=== PATIENT | male | born 1940 | race Caucasian/White ===

== ENCOUNTER 2020-04-22 11:41 | Emergency (ER) | payer BC, OTHER ==
--- OUTSIDE RECORDS SUMMARY | 2020-04-22 11:43 | XMS REPORT | Clinical Summary ---
:1940 Author Organization [facility] Address [address] [place] [id number] Care Team Providers Name Role Phone Unavailable Primary Care Provider Unavailable Allergies Not on File Medications Not on file Active Problems Not on file Social History Tobacco Use Types Packs/Day Years Used Date Never Assessed Sex Assigned at Date Recorded Not on file Job Start Date Occupation Industry Not on file Not on file Not on file Travel History Travel Start Travel End No recent travel history available. 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
--- OUTSIDE RECORDS SUMMARY | 2020-04-22 11:44 | XMS REPORT | Clinical Summary ---
:[address] [facility] Address [address] [place] [address] Care Team Providers Name Role Phone Nelda Feliz Primary Care Provider Allergies Active Allergy Reactions Severity Noted Date Comments Butorphanol Tartrate Nausea And Vomiting 03/18/2017 syncope Medications Medication Sig Dispensed Refills Start Date End Date Status metoprolol (TOPROL-XL) Take 100 mg by 0 Active 100 MG 24 hr tablet mouth daily. losartan-hydrochlorothi Take 1 tablet by 0 Active azide (HYZAAR) 100-12.5 mouth daily. mg per tablet amLODIPine (NORVASC) 10 Take 10 mg by 0 Active MG tablet mouth daily. simvastatin (ZOCOR) 20 Take 20 mg by 0 Active MG tablet mouth nightly. escitalopram oxalate Take 10 mg by 0 Active (LEXAPRO) 10 MG tablet mouth daily. aspirin 325 MG EC Take 325 mg by 0 Active tablet mouth daily. brinzolamide-brimonidin Apply to eye(s). 0 Active e (SIMBRINZA) 1-0.2 % DrpS travoprost (TRAVATAN Z) Place 1 drop into 0 Active 0.004 % Drop ophthalmic both eyes drops nightly. timolol (BETIMOL) 0.5 % 1 drop 2 (two) 0 Active ophthalmic solution times daily. loteprednol (LOTEMAX) 1 drop 4 (four) 0 Active 0.5 % ophthalmic times daily. suspension Active Problems Not on file Social History Tobacco Use Types Packs/Day Years Used Date Never Smoker Smokeless Tobacco: Never Used Alcohol Use Drinks/Week oz/Week Comments Yes 5 Glasses of wine 5.4 2 Cans of beer 2 Shots of liquor Sex Assigned at Date Recorded Not on file Job Start Date Occupation Industry Not on file Not on file Not on file Travel History Travel Start Travel End No recent travel history available. Last Filed Vital Signs Not on file Plan of Treatment Not on file Implants Implanted Type [facility] Licensed Practical Nurse Device Shelf Model / Identifier Expiration Serial / Lot Date Cornea, Whole, Pre-Cut For Ek Ophthalmology Left: Unknown 08/29/2018 [id number] / Implanted: Qty: 1 on 08/19/2018 by Beth Duong MD Eye [id number] / Iol Acrysof Candice 6.0 13 17d [id number] - [id number] Ophthalmolo gy Left: [facility] 06/03/2023 [id number] / Implanted: Qty: 1 on 01/20/2019 by Beth Duong MD Eye [id number] / Cornea Whole Cornea - [id number] Tissue Right: [facility] 03/28/2017 CORNEA / Implanted: Qty: 1 on 03/19/2017 by Beth Duong MD Graft/Yusuf bstitute Eye [facility] 17-2000 200 / Results Not on fileafter 04/22/2019 Insurance Payer Benefit Plan / Subscriber ID Type Phone Address Group AETNA - MEDICARE AETNA MEDICARE HMO xxxxxxxx [address] [place] [address]
[2020-04-22 13:20] LABS: Absolute Lymphocytes (CBC) 1.9 K/uL (0.7-4.9); Basophils % 0.6 % (0-1.3); Hematocrit 22.4 % (39.6-49.0); Lymphocytes % 14.7 % (15.3-44.8); MPV 9.1 fL (7.6-11.3); RBC Red Blood Cell Count 2.31 M/uL (4.33-5.43)
[2020-04-22 13:37] LABS: Bilirubin Direct 0.3 mg/dL (0-0.2); Bilirubin Total 0.7 mg/dL (0.2-1.0); Potassium 3.8 mmol/L (3.5-5.1); Protein, Total 6.1 g/dL (6.4-8.2)
--- NOTE | 2020-04-22 13:59 | RAD REPORT ---
EXAM DESCRIPTION: CTAbdomen Pelvis W Contrast - 04/22/2020 1:38 pm CLINICAL HISTORY: Abdominal pain. Abd pain;GI bleed COMPARISON: No comparisons TECHNIQUE: Biphasic CT imaging of the abdomen and pelvis was performed with 100 ml non-ionic IV cont rast. All CT scans are performed using dose optimization technique as appropriate and may include automated exposure control or mA/KV adjustment according to patient size. FINDINGS: 4 mm nodule is seen in the left lung base, nonspecific.Small hiatal hernia is seen with as ymmetric thickening of the distal esophagus and several small paraesophageal lymph nodes, largest angela suring 8 mm. Several small low-density liver lesions are present, nonspecific. No aggressive liver lesion or bilia ry dilatation. The spleen, pancreas, adrenal glands and kidneys. No bowel obstruction, free air, free fluid or abscess. Sigmoid diverticulosis coli is present without diverticulitis. The appendix is normal. No evidence of significant lymphadenopathy. Prostate gland is mildly enlarged projecting into the bladder base. IMPRESSION: Small hiatal hernia with irregular thickening of the distal esophagus with several small adjacent lymph nodes. An esophageal mass could be present in this region. Recommend upper endoscopy followup assessment. Sigmoid diverticulosis coli without diverticulitis.
--- NOTE | 2020-04-22 14:25 | ER ---
Nurse's Notes [facility] Name: Guy Cho Age: 79 yrs Sex: Male : 1940 Arrival Date: 04/22/2020 Time: 11:45 Bed 5 Private MD: Rony Lutz V Diagnosis: GI BLeed Presentation: 04/22 11:52 Chief complaint: Patient states: N/V/D since Saturday. + weakness and decreased appetite. hb No fever. Noticed blood in one stool. Coronavirus screen: Proceed with normal triage. Patient denies a cough. Patient denies shortness of breath or difficulty breathing. Patient denies measured and/or subjective temperature greater than 100.4F prior to today's visit. Patient denies travel on a cruise ship or to a country the [facility] currently lists as an affected area. Patient denies contact with known and/or suspected case of COVID-19. Ebola Screen: Patient denies travel to an Ebola-affected area in the 21 days before illness onset. Initial Sepsis Screen: Does the patient meet any 2 criteria? HR > 90 bpm. No. Patient's initial sepsis screen is negative. Does the patient have a suspected source of infection? No. Patient's initial sepsis screen is negative. Risk Assessment: Do you want to hurt yourself or someone else? Patient reports no desire to harm self or others. Onset of symptoms was April 18, 2020. 11:52 Method Of Arrival: Ambulatory hb 11:52 Acuity: FAISAL 3 hb Historical: - Allergies: 11:55 Stadol; hb - PMHx: 11:55 Ulcers; Hypertension; High Cholesterol; Glaucoma; hb - PSHx: 11:55 Tonsillectomy; hb - Social history:: Smoking status: Patient denies any tobacco usage or history of. Patient uses alcohol, on a daily basis. Patient/guardian denies using street drugs, tobacco products. Screenin:00 Abuse screen: Denies threats or abuse. Nutritional screening: No deficits noted. em Tuberculosis screening: No symptoms or risk factors identified. Fall Risk None identified. Assessment: 13:00 General: Appears in no apparent distress. comfortable, Behavior is calm, cooperative, em appropriate for age, Denies fever. Pain: Denies pain. Neuro: Level of Consciousness is awake, alert, obeys commands, Oriented to person, place, time, situation, Appropriate for age Reports dizziness, weakness since Saturday. Cardiovascular: Denies chest pain, Capillary refill < 3 seconds Patient's skin is warm and dry. Respiratory: Airway is patent Respiratory effort is even, unlabored, Respiratory pattern is regular, symmetrical, Denies cough, shortness of breath. GI: Abdomen is flat, Bowel sounds present X 4 quads. Reports diarrhea, bloody stool, Patient currently denies nausea, vomiting. Derm: Skin is intact, is thin, Skin is dry, Skin is pale, Skin temperature is warm. Musculoskeletal: Capillary refill < 3 seconds, Range of motion: intact in all extremities. 14:00 Reassessment: Patient appears in no apparent distress at this time. Patient and/or em family updated on plan of care and expected duration. Pain level reassessed. Patient is alert, oriented x 3, equal unlabored respirations, skin warm/dry/pink. 15:40 Reassessment: Patient appears in no apparent distress at this time. Patient and/or em family updated on plan of care and expected duration. Pain level reassessed. Patient is alert, oriented x 3, equal unlabored respirations, skin warm/dry/pink. 16:15 Reassessment: double checked PRBC's with BEATRICE Rogers, initiated blood products, em instructed pt to press call corrales if short of breath, chest pain or any other unusual symptoms. 17:30 Reassessment: report given to BEATRICE Martinez at [facility], pending EMS transportation. em 18:22 Reassessment: Patient appears in no apparent distress at this time. completion of blood em products, 320 mL. 19:06 Reassessment: Patient appears in no apparent distress at this time. Patient and/or em family updated on plan of care and expected duration. Pain level reassessed. Patient is alert, oriented x 3, equal unlabored respirations, skin warm/dry/pink. report given to EMS. Vital Signs: 11:52 BP 130 / 50; Pulse 105; Resp 17; Temp 98.3; Pulse Ox 99% ; Weight 70.31 kg; Height 5 hb ft. 11 in. (180.34 cm); Pain 0/10; 13:09 BP 145 / 63; Pulse 97; Resp 18; Pulse Ox 98% on R/A; Pain 0/10; em 14:30 BP 134 / 51; Pulse 96; Resp 16; Pulse Ox 97% on R/A; em 15:36 BP 149 / 50; Pulse 101; Resp 20; Pulse Ox 99% on R/A; em 16:15 em 16:35 BP 141 / 49; Pulse 89; Resp 15; Pulse Ox 99% on R/A; em 17:24 BP 153 / 55; Pulse 97; Resp 16; Pulse Ox 99% on R/A; Pain 0/10; em 18:22 BP 148 / 56; Pulse 80; Resp 16; Temp 98.7; Pulse Ox 99% on R/A; em 11:52 Body Mass Index 21.62 (70.31 kg, 180.34 cm) hb 16:15 please see transfusion flow sheet for VS em ED Course: 11:45 Patient arrived in ED. as 11:46 Rony Lutz MD is Private Physician. as 11:54 Triage completed. hb 11:56 Arm band placed on. hb 12:37 Pool Ugalde MD is Attending Physician. kdr 13:00 Patient has correct armband on for positive identification. Bed in low position. Call em light in reach. 13:04 Felix Chowdhury, RN is Primary Nurse. em 13:07 Initial lab(s) drawn, by me, sent to lab. T\T\S collected, blood band applied to patient. dh3 Inserted saline lock: 20 gauge in right antecubital area, using aseptic technique. Blood collected. 13:10 abo rh no charge drawn by me and sent to lab. dh3 13:25 Notified ED physician of a critical lab result(s). HGB 7.4. hb 13:39 CT Abd/Pelvis - IV Contrast Only In Process Unspecified. EDMS 14:22 Consent for blood and/or blood product transfusion explained by staff, signed by em patient. 15:00 attempted transfer to [facility]. bd 17:43 admin approval given by vargas frederick. bd 19:05 No provider procedures requiring assistance completed. Patient transferred, IV remains em in place. Administered Medications: 15:46 Drug: ProTONIX 80 mg Route: IVP; Site: right antecubital; em 16:33 Follow up: Response: No adverse reaction em 16:32 Drug: ProTONIX 8 mg/hr Route: IV; Rate: 25 ml/hr; Site: left forearm; em 19:09 Follow up: IV Status: Infusion continued upon transfer em Outcome: 14:25 ER care complete, transfer ordered by . kdr 19:06 Transferred by helicopter to [facility], Transfer form completed. em X-rays sent w/ patient. 19:06 Condition: good 19:06 Instructed on the need for transfer, Demonstrated understanding of instructions. 19:10 Patient left the ED. em Signatures: Dispatcher [employer] EDJeniffer Edwards Kevin, MD MD kdr Munoz, Edgar, RN RN So Landon Heather, RN RN Dolly Guaman [facility]
--- NOTE | 2020-04-22 14:25 | EDPHYS ---
Physician Documentation [facility] Name: Guy Cho Age: 79 yrs Sex: Male : 1940 Arrival Date: 04/22/2020 Time: 11:45 Bed 5 Private MD: Rony Lutz V ED Physician Pool Ugalde HPI: 04/23 08:21 This 79 yrs old Male presents to ER via Ambulatory with complaints of kdr Vomiting/Diarrhea, Decreased Appetite, General Weakness. 08:21 The patient presents to the emergency department with nausea, that is mild, vomiting, kdr that is intermittent, diarrhea, that is intermittent, abdominal pain, of the right lower quadrant and left lower quadrant, described as crampy, dull, intermittent, vague,\E\ waxing and waning. Onset: The symptoms/episode began/occurred suddenly, 5 day(s) ago. Possible causes: unknown. The symptoms are aggravated by nothing. The symptoms are alleviated by nothing. Associated signs and symptoms: Pertinent positives: abdominal pain, anorexia, diarrhea, GI bleeding, nausea, vomiting. Severity of symptoms: At their worst the symptoms were mild moderate today, in the emergency department the symptoms are unchanged. The patient has not experienced similar symptoms in the past. The patient has not recently seen a physician. states that the patient has become pale and weak.. Historical: - Allergies: 04/22 11:55 Stadol; hb - PMHx: 11:55 Ulcers; Hypertension; High Cholesterol; Glaucoma; hb - PSHx: 11:55 Tonsillectomy; hb - Social history:: Smoking status: Patient denies any tobacco usage or history of. Patient uses alcohol, on a daily basis. Patient/guardian denies using street drugs, tobacco products. ROS: 04/23 08:21 Constitutional: Negative for fever, chills, and weight loss, Eyes: Negative for injury, kdr pain, redness, and discharge, ENT: Negative for injury, pain, and discharge, Neck: Negative for injury, pain, and swelling, Cardiovascular: Negative for chest pain, palpitations, and edema, Respiratory: Negative for shortness of breath, cough, wheezing, and pleuritic chest pain, Back: Negative for injury and pain, : Negative for injury, bleeding, discharge, and swelling, MS/Extremity: Negative for injury and deformity, Skin: Negative for injury, rash, and discoloration, Neuro: Negative for headache, weakness, numbness, tingling, and seizure activity. Psych: Negative for depression, anxiety, suicide ideation, homicidal ideation, and hallucinations, Allergy/Immunology: Negative for hives, rash, and allergies, Endocrine: Negative for neck swelling, polydipsia, polyuria, polyphagia, and marked weight changes, Hematologic/Lymphatic: Negative for swollen nodes, abnormal bleeding, and unusual bruising. Abdomen/GI: Positive for abdominal pain, nausea, vomiting, and diarrhea, rectal bleeding, Negative for constipation, abdominal distension. Exam: 08:21 Constitutional: This is a well developed, well nourished patient who is awake, alert, kdr and in no acute distress. Head/Face: Normocephalic, atraumatic. Eyes: Pupils equal round and reactive to light, extra-ocular motions intact. Lids and lashes normal. Conjunctiva and sclera are non-icteric and not injected. Cornea within normal limits. Periorbital areas with no swelling, redness, or edema. Neck: Trachea midline, no thyromegaly or masses palpated, and no cervical lymphadenopathy. Supple, full range of motion without nuchal rigidity, or vertebral point tenderness. No Meningismus. Chest/axilla: Normal chest wall appearance and motion. Nontender with no deformity. No lesions are appreciated. Cardiovascular: Regular rate and rhythm with a normal S1 and S2. No gallops, murmurs, or rubs. Normal PMI, no JVD. No pulse deficits. Respiratory: Lungs have equal breath sounds bilaterally, clear to auscultation and percussion. No rales, rhonchi or wheezes noted. No increased work of breathing, no retractions or nasal flaring. Back: No spinal tenderness. No costovertebral tenderness. Full range of motion. Skin: Warm, dry with normal turgor. Normal color with no rashes, no lesions, and no evidence of cellulitis. 08:21 Abdomen/GI: Inspection: abdomen appears normal, Bowel sounds: active, diminished, in all quadrants, Palpation: soft, mild abdominal tenderness, in the right lower quadrant and left lower quadrant, Rectal exam: Stool: guaiac positive, hemorrhoid(s), are not appreciated. Vital Signs: 06/19 11:52 BP 130 / 50; Pulse 105; Resp 17; Temp 98.3; Pulse Ox 99% ; Weight 70.31 kg; Height 5 hb ft. 11 in. (180.34 cm); Pain 0/10; 13:09 BP 145 / 63; Pulse 97; Resp 18; Pulse Ox 98% on R/A; Pain 0/10; em 14:30 BP 134 / 51; Pulse 96; Resp 16; Pulse Ox 97% on R/A; em 15:36 BP 149 / 50; Pulse 101; Resp 20; Pulse Ox 99% on R/A; em 16:15 em 16:35 BP 141 / 49; Pulse 89; Resp 15; Pulse Ox 99% on R/A; em 17:24 BP 153 / 55; Pulse 97; Resp 16; Pulse Ox 99% on R/A; Pain 0/10; em 18:22 BP 148 / 56; Pulse 80; Resp 16; Temp 98.7; Pulse Ox 99% on R/A; em 11:52 Body Mass Index 21.62 (70.31 kg, 180.34 cm) hb 16:15 please see transfusion flow sheet for VS em MDM: 14:25 Patient medically screened. kdr 04/23 08:21 Data reviewed: vital signs, nurses notes, lab test result(s), radiologic studies. kdr Counseling: I had a detailed discussion with the patient and/or guardian regarding: the historical points, exam findings, and any diagnostic results supporting the discharge/admit diagnosis, lab results, radiology results, the need to transfer to another facility. 04/22 12:38 Order name: Basic Metabolic Panel; Complete Time: 13:58 kdr 04/22 12:38 Order name: CBC with Diff; Complete Time: 13:58 kdr 04/22 12:38 Order name: Hepatic Function; Complete Time: 13:58 kdr 04/22 12:38 Order name: Lipase; Complete Time: 13:58 kdr 04/22 13:02 Order name: Type And Screen dh3 04/22 13:53 Order name: CREATININE WHOLE BLOOD; Complete Time: 13:58 EDMS 04/22 12:38 Order name: IV Saline Lock; Complete Time: 13:09 kdr 04/22 12:38 Order name: Labs collected and sent; Complete Time: 13:09 kdr 04/22 13:05 Order name: CT Abd/Pelvis - IV Contrast Only; Complete Time: 14:02 kdr 04/22 14:18 Order name: Bb Add On bd 04/22 14:30 Order name: Packed RBC Leukored EDMN 04/22 14:55 Order name: ABO/RH no charge EDMN 04/22 13:41 Order name: Labs - recollect needed: collect abo/rh no charge; Complete Time: 16:33 bd Administered Medications: 04/22 15:46 Drug: ProTONIX 80 mg Route: IVP; Site: right antecubital; em 16:33 Follow up: Response: No adverse reaction em 16:32 Drug: ProTONIX 8 mg/hr Route: IV; Rate: 25 ml/hr; Site: left forearm; em 19:09 Follow up: IV Status: Infusion continued upon transfer em Disposition: 04/22/20 14:25 Transfer ordered to [facility]. Diagnosis is GI BLeed. - Reason for transfer: Higher level of care. - Accepting physician is [facility]. - Condition is Serious. - Problem is new. - Symptoms have improved. Signatures: Dispatcher [employer] [facility] Jeniffer Carson Kevin, MD MD kdr Felix Chowdhury, RN RN Sue South RN RN Corrections: (The following items were deleted from the chart) 19:10 14:25 04/22/2020 14:25 Transfer ordered to [facility]. em Diagnosis is GI BLeed. Reason for transfer: Higher level of care. Accepting physician is [facility]. Condition is Serious. Problem is new. Symptoms have improved. kdr
[2020-04-22] MEDS ORDERED: PANTOPRAZOLE 40 MG INJ ONE ×2 (15:38→15:49)
[2020-04-22] MEDS ORDERED: NA CHLORIDE 0.9% 250 ML ONE (15:52)
[2020-04-22] MEDS ORDERED: PANTOPRAZOLE INJ 80 MG in NA CHLORIDE 0.9% 250 ML IV SCH (16:00)
[2020-04-22 20:04] VITALS: O2SAT 99
[2020-04-22 20:08] VITALS: BP 148/56; TEMP 98.7
== END 2020-04-22 19:10 | disposition short-term general hospital (02) ==
LOC: ER 11:41
PROC: 30233N1 Transfusion of Nonautologous Red Blood Cells into Peripheral Vein, Percutaneous Approach (ICD-10-PCS; principal; 2020-04-22)
DX: K92.2 Gastrointestinal hemorrhage, unspecified (principal); I10 Essential (primary) hypertension; Z88.5 Allergy status to narcotic agent
CPT/HCPCS: 96365; 85025; 80048; 36415; 86900; 86850; 82565; 86901; 80076; 83690; 74177; 99285; 96366; 36430; Q9967; C9113 ×3; P9016; J7030 ×2

== ENCOUNTER 2020-05-03 13:02 | Observation (INO) | payer OTHER ==
[2020-05-03 14:10] LABS: Absolute Lymphocytes (CBC) 1.4 K/uL (0.7-4.9); Basophils % 0.8 % (0-1.3); Lymphocytes % 14.3 % (15.3-44.8); MPV 8.4 fL (7.6-11.3); RBC Red Blood Cell Count 2.98 M/uL (4.33-5.43)
--- NOTE | 2020-05-03 14:21 | RAD REPORT ---
EXAM DESCRIPTION: RAD - Chest Single View - 05/03/2020 2:15 pm CLINICAL HISTORY: SOB Chest pain. COMPARISON: Abdomen Pelvis W Contrast dated 04/22/2020 FINDINGS: Portable technique limits examination quality. Moderate bilateral pulmonary opacities likely representing pulmonary edema. Heart is moderately enlar ged. Left pleural effusion is present. IMPRESSION: Moderate CHF suspected.
[2020-05-03 14:31] LABS: BUN Blood Urea Nitrogen 22 mg/dL (7-18); Bicarbonate 20 mmol/L (21-32); Glucose Level 102 mg/dL (74-106); Magnesium 2.7 mg/dL (1.8-2.4); NT PRO-BNP 1678 pg/mL (<450); Potassium 3.7 mmol/L (3.5-5.1); Sodium Level 141 mmol/L (136-145); Troponin (Emerg Dept Use Only) < 0.02 ng/mL (0.0-0.045)
[2020-05-03 14:34] LABS: Protime INR 1.18
--- NOTE | 2020-05-03 14:56 | EDPHYS ---
Physician Documentation [facility] Name: Guy Cho Age: 79 yrs Sex: Male : 1940 Arrival Date: 05/03/2020 Time: 13:04 Bed 14 Private MD: ED Physician Pool Ugalde HPI: 05/04 15:44 This 79 yrs old Male presents to ER via Wheelchair with complaints of kdr Shortness Of Breath. 15:45 The patient has shortness of breath at rest, with light activity. Onset: The kdr symptoms/episode began/occurred gradually, 2 day(s) ago. Duration: The symptoms are continuous, and are steadily getting worse. The patient's shortness of breath is aggravated by exertion, light activity. Associated signs and symptoms: Pertinent positives: This patient does not have any pertinent positive signs or symptoms associated with shortness of breath. Severity of symptoms: At their worst the symptoms were mild in the emergency department the symptoms are unchanged. The patient has not experienced similar symptoms in the past. The patient has been recently seen by a physician: Kyra with GI Bleeding last week. Historical: - Allergies: 05/03 13:22 Stadol; ll1 - PMHx: 13:22 Hypertension; High Cholesterol; Glaucoma; Ulcers; ll1 - PSHx: 13:22 Tonsillectomy; ll1 - Immunization history:: Adult Immunizations up to date. - Social history:: Smoking status: Patient denies any tobacco usage or history of. Patient uses alcohol, on a daily basis. occasionally. Patient/guardian denies using street drugs, tobacco products. ROS: 05/04 15:45 Constitutional: Negative for fever, chills, and weight loss, Eyes: Negative for injury, kdr pain, redness, and discharge, Neck: Negative for injury, pain, and swelling, Cardiovascular: Negative for chest pain, palpitations, and edema, Abdomen/GI: Negative for abdominal pain, nausea, vomiting, diarrhea, and constipation, Back: Negative for injury and pain, : Negative for injury, bleeding, discharge, and swelling, MS/Extremity: Negative for injury and deformity, Skin: Negative for injury, rash, and discoloration, Neuro: Negative for headache, weakness, numbness, tingling, and seizure activity. Psych: Negative for depression, anxiety, suicide ideation, homicidal ideation, and hallucinations, Allergy/Immunology: Negative for hives, rash, and allergies, Endocrine: Negative for neck swelling, polydipsia, polyuria, polyphagia, and marked weight changes, Hematologic/Lymphatic: Negative for swollen nodes, abnormal bleeding, and unusual bruising. Respiratory: Positive for cough, with no reported sputum, dyspnea on exertion, shortness of breath, Negative for hemoptysis, orthopnea, pleurisy, wheezing. Exam: 15:45 Constitutional: This is a well developed, well nourished patient who is awake, alert, kdr and in no acute distress. Head/Face: Normocephalic, atraumatic. Eyes: Pupils equal round and reactive to light, extra-ocular motions intact. Lids and lashes normal. Conjunctiva and sclera are non-icteric and not injected. Cornea within normal limits. Periorbital areas with no swelling, redness, or edema. Neck: Trachea midline, no thyromegaly or masses palpated, and no cervical lymphadenopathy. Supple, full range of motion without nuchal rigidity, or vertebral point tenderness. No Meningismus. Chest/axilla: Normal chest wall appearance and motion. Nontender with no deformity. No lesions are appreciated. Cardiovascular: Regular rate and rhythm with a normal S1 and S2. No gallops, murmurs, or rubs. Normal PMI, no JVD. No pulse deficits. Abdomen/GI: Soft, non-tender, with normal bowel sounds. No distension or tympany. No guarding or rebound. No evidence of tenderness throughout. Back: No spinal tenderness. No costovertebral tenderness. Full range of motion. Skin: Warm, dry with normal turgor. Normal color with no rashes, no lesions, and no evidence of cellulitis. MS/ Extremity: Pulses equal, no cyanosis. Neurovascular intact. Full, normal range of motion. Neuro: Awake and alert, GCS 15, oriented to person, place, time, and situation. Cranial nerves II-XII grossly intact. Motor strength 5/5 in all extremities. Sensory grossly intact. Cerebellar exam normal. Normal gait. Psych: Awake, alert, with orientation to person, place and time. Behavior, mood, and affect are within normal limits. 15:45 Respiratory: the patient does not display signs of respiratory distress, Respirations: normal, Breath sounds: rales, that are mild, are located in both bases. Vital Signs: 05/03 13:20 BP 126 / 55; Pulse 67; Resp 20; Temp 98.5; Pulse Ox 96% ; Pain 0/10; ll1 14:00 BP 130 / 49; Pulse 62; Resp 20; Pulse Ox 91% ; vc 15:00 BP 116 / 52; Pulse 58; Resp 22; Pulse Ox 87% on 1.5 lpm NC; vc 16:00 BP 111 / 43; Pulse 57; Resp 20; Pulse Ox 93% on R/A; vc 16:45 BP 147 / 62; Pulse 78; Resp 20; Pulse Ox 90% on 2 lpm NC; vc 18:00 BP 119 / 52; Pulse 63; Resp 21; Pulse Ox 93% on 2 lpm NC; vc 19:00 BP 113 / 49; Pulse 62; Resp 20; Pulse Ox 92% on R/A; vc 20:00 BP 125 / 48; Pulse 63; Resp 18; Pulse Ox 93% on R/A; vc 20:45 BP 113 / 47; Pulse 59; Resp 20; Temp 98.2; Pulse Ox 91% on 2 lpm NC; vc MDM: 14:55 Patient medically screened. kdr 05/04 15:45 Data reviewed: vital signs, nurses notes, lab test result(s), radiologic studies. kdr Counseling: I had a detailed discussion with the patient and/or guardian regarding: the historical points, exam findings, and any diagnostic results supporting the discharge/admit diagnosis, lab results, radiology results, the need for further work-up and treatment in the hospital. 05/03 13:36 Order name: Basic Metabolic Panel; Complete Time: 14:51 kdr 05/03 13:36 Order name: CBC with Diff; Complete Time: 14:35 kdr 05/03 13:36 Order name: Magnesium; Complete Time: 14:51 kdr 05/03 13:36 Order name: NT PRO-BNP; Complete Time: 14:51 kdr 05/03 13:36 Order name: PT-INR; Complete Time: 14:51 kdr 05/03 13:36 Order name: Troponin (emerg Dept Use Only); Complete Time: 14:51 kdr 05/03 15:07 Order name: Basic Metabolic Panel EDMS 05/03 15:08 Order name: Basic Metabolic Panel EDMS 05/03 15:08 Order name: CBC with Automated Diff EDMS 05/03 15:08 Order name: CBC with Automated Diff EDMS 05/03 15:08 Order name: NT PRO-BNP EDMS 05/03 15:08 Order name: NT PRO-BNP EDMS 05/03 15:08 Order name: Troponin I EDMS 05/03 15:08 Order name: Troponin I EDMS 05/03 13:36 Order name: XRAY Chest (1 view); Complete Time: 14:35 kdr 05/03 13:36 Order name: EKG; Complete Time: 13:37 kdr 05/03 13:36 Order name: Cardiac monitoring; Complete Time: 14:08 kdr 05/03 13:36 Order name: EKG - Nurse/Tech; Complete Time: 14:08 kdr 05/03 13:36 Order name: IV Saline Lock; Complete Time: 13:50 kdr 05/03 13:36 Order name: Labs collected and sent; Complete Time: 13:50 kdr 05/03 13:36 Order name: O2 Per Protocol; Complete Time: 13:50 kdr 05/03 13:36 Order name: O2 Sat Monitoring; Complete Time: 13:50 kdr 05/03 15:08 Order name: Low Sodium EDMS 05/03 15:08 Order name: Troponin I EDMS Administered Medications: 05/03 15:00 Drug: Lasix 20 mg Route: IVP; Site: right antecubital; vc 18:21 Follow up: Response: No adverse reaction vc 16:38 Drug: Lasix 20 mg Route: IVP; Site: right forearm; vc 18:21 Follow up: Response: No adverse reaction vc 16:38 Drug: Potassium Chloride 40 mEq Route: PO; vc 18:21 Follow up: Response: No adverse reaction vc Disposition: 05/03/20 14:55 Hospitalization ordered by Rony Lutz for Inpatient Admission. Preliminary diagnosis are Shortness of breath, Unspecified combined systolic (congestive) and diastolic (congestive) heart failure. - Bed requested for Telemetry/MedSurg (Inpatient). - Status is Inpatient Admission. vc - Condition is Fair. - Problem is new. - Symptoms have improved. Signatures: Dispatcher [employer] EDMS Pool Ugalde MD MD kdr Steffanie Segura RN RN tl1 Calcote, Deidra, RN RN vc Donnie, Lynsay, RN RN ll1 Corrections: (The following items were deleted from the chart) 20:33 14:55 Hospitalization Ordered by Rony Lutz MD for Inpatient Admission. Preliminary tl1 diagnosis is Shortness of breath; Unspecified combined systolic (congestive) and diastolic (congestive) heart failure. Bed requested for Telemetry/MedSurg (Inpatient). Status is Inpatient Admission. Condition is Fair. Problem is new. Symptoms have improved. [facility] 21:30 20:33 05/03/2020 14:55 Hospitalization Ordered by Rony Lutz MD for Inpatient vc Admission. Preliminary diagnosis is Shortness of breath; Unspecified combined systolic (congestive) and diastolic (congestive) heart failure. Bed requested for Telemetry/MedSurg (Inpatient). Status is Inpatient Admission. Condition is Fair. Problem is new. Symptoms have improved. tl1
--- NOTE | 2020-05-03 14:56 | ER ---
Nurse's Notes [facility] Name: Guy Cho Age: 79 yrs Sex: Male : 1940 Arrival Date: 05/03/2020 Time: 13:04 Bed 14 Private MD: Diagnosis: Shortness of breath;Unspecified combined systolic (congestive) and diastolic (congestive) heart failure Presentation: 05/03 13:20 Chief complaint: Patient states: SOB for 2 days, worse today. SOB with any exertion. ll1 Diagnosed with bleeding ulcers last week at [facility] in [place]. Coronavirus screen: Proceed with normal triage. Patient denies a cough. Patient reports shortness of breath or difficulty breathing. Patient denies measured and/or subjective temperature greater than 100.4F prior to today's visit. Patient denies travel on a cruise ship or to a country the [facility] currently lists as an affected area. Patient denies contact with known and/or suspected case of COVID-19. Ebola Screen: Patient denies travel to an Ebola-affected area in the 21 days before illness onset. Initial Sepsis Screen: Does the patient meet any 2 criteria? No. Patient's initial sepsis screen is negative. Risk Assessment: Do you want to hurt yourself or someone else? Patient reports no desire to harm self or others. Onset of symptoms was May 02, 2020. 13:20 Method Of Arrival: Wheelchair ll1 13:20 Acuity: FAISAL 3 ll1 14:00 Initial Sepsis Screen: Does the patient have a suspected source of infection? No. vc Patient's initial sepsis screen is negative. Triage Assessment: 13:33 General: Appears in no apparent distress. Behavior is calm, cooperative, appropriate ll1 for age. Pain: Denies pain. Neuro: No deficits noted. Cardiovascular: No deficits noted. Respiratory: Reports shortness of breath on exertion Airway is patent Trachea midline Respiratory effort is even, unlabored, Respiratory pattern is regular, symmetrical, SOB with any exertion for 2 days, worse today. No cough/fever. GI: No deficits noted. 13:34 Respiratory: Onset: The symptoms/episode began/occurred yesterday, the patient has mild ll1 shortness of breath. Historical: - Allergies: 13:22 Stadol; ll1 - PMHx: 13:22 Hypertension; High Cholesterol; Glaucoma; Ulcers; ll1 - PSHx: 13:22 Tonsillectomy; ll1 - Immunization history:: Adult Immunizations up to date. - Social history:: Smoking status: Patient denies any tobacco usage or history of. Patient uses alcohol, on a daily basis. occasionally. Patient/guardian denies using street drugs, tobacco products. Screenin:33 Abuse screen: Denies threats or abuse. Nutritional screening: No deficits noted. ll1 Tuberculosis screening: No symptoms or risk factors identified. Fall Risk IV access (20 points). Ambulatory Aid- Crutches/Cane/Walker (15 pts). Total Byrd Fall Scale indicates Low Risk Score (25-44 pts). Fall prevention measures have been instituted. Side Rails Up X 2 Placed close to Nursing Station Frequent Obs/Assesments occuring As available Patient and Family Educated on Fall Prevention Program and strategies. Assessment: 14:00 Reassessment: SEE TRIAGE FOR ASSESSMENT. vc 14:00 Respiratory: Breath sounds are diminished bilaterally. vc 14:27 Reassessment: OXYGEN SATURATION STAYING BETWEEN 87% AND 89%, PATIENT PLACED ON 1.5 vc LITERS NASAL CANULA, OXY SATURATION INCREASED TO 94%. 14:27 Cardiovascular: Capillary refill < 3 seconds Patient's skin is warm and dry. Rhythm is vc regular. Respiratory: Airway is patent Respiratory effort is even, labored, Respiratory pattern is regular, symmetrical. 16:00 Reassessment: Patient appears in no apparent distress at this time. Patient and/or vc family updated on plan of care and expected duration. Pain level reassessed. Patient is alert, oriented x 3, equal unlabored respirations, skin warm/dry/pink. Patient states symptoms have improved. 17:00 Reassessment: Patient appears in no apparent distress at this time. Patient and/or vc family updated on plan of care and expected duration. Pain level reassessed. Patient is alert, oriented x 3, equal unlabored respirations, skin warm/dry/pink. Patient states feeling better. 17:54 Reassessment: Patient appears in no apparent distress at this time. Patient and/or vc family updated on plan of care and expected duration. Pain level reassessed. OXYGEN SATURATION DROPPED TO 88% INCREASED OXYGEN TO 2L, OXYGEN SATURATION NOW AT 93%. 19:00 Reassessment: Patient appears in no apparent distress at this time. Patient and/or vc family updated on plan of care and expected duration. Pain level reassessed. Patient is alert/active/playful, equal unlabored respirations, skin warm/dry/pink. 20:00 Reassessment: Patient appears in no apparent distress at this time. Patient and/or vc family updated on plan of care and expected duration. Pain level reassessed. Patient is alert, oriented x 3, equal unlabored respirations, skin warm/dry/pink. 21:00 Reassessment: Patient appears in no apparent distress at this time. Patient and/or vc family updated on plan of care and expected duration. Pain level reassessed. Patient is alert, oriented x 3, equal unlabored respirations, skin warm/dry/pink. Vital Signs: 13:20 BP 126 / 55; Pulse 67; Resp 20; Temp 98.5; Pulse Ox 96% ; Pain 0/10; ll1 14:00 BP 130 / 49; Pulse 62; Resp 20; Pulse Ox 91% ; vc 15:00 BP 116 / 52; Pulse 58; Resp 22; Pulse Ox 87% on 1.5 lpm NC; vc 16:00 BP 111 / 43; Pulse 57; Resp 20; Pulse Ox 93% on R/A; vc 16:45 BP 147 / 62; Pulse 78; Resp 20; Pulse Ox 90% on 2 lpm NC; vc 18:00 BP 119 / 52; Pulse 63; Resp 21; Pulse Ox 93% on 2 lpm NC; vc 19:00 BP 113 / 49; Pulse 62; Resp 20; Pulse Ox 92% on R/A; vc 20:00 BP 125 / 48; Pulse 63; Resp 18; Pulse Ox 93% on R/A; vc 20:45 BP 113 / 47; Pulse 59; Resp 20; Temp 98.2; Pulse Ox 91% on 2 lpm NC; vc ED Course: 13:04 Patient arrived in ED. as 13:22 Triage completed. ll1 13:22 Arm band placed on Patient placed in an exam room, on a stretcher. ll1 13:29 Pool Ugalde MD is Attending Physician. kdr 13:33 Domenica Fields RN is Primary Nurse. ll1 13:34 Patient has correct armband on for positive identification. Bed in low position. Call ll1 light in reach. Side rails up X 1. 13:54 Placed in gown. Warm blanket given. Verbal reassurance given. cardiac monitor on. Pulse jp3 ox on. NIBP on. 13:54 Initial lab(s) drawn, by me, sent to lab. Inserted saline lock: 20 gauge in right jp3 wrist, using aseptic technique. Blood collected. Patient maintains SpO2 saturation greater than 95% on room air. 14:00 Diet tray ordered. jp3 14:08 EKG done, by ED staff, reviewed by Pool Ugalde MD. jp3 14:12 EKG done, by sonar technician. reviewed by Pool Ugalde MD. at1 14:15 XRAY Chest (1 view) In Process Unspecified. EDMS 14:20 Diet: Patient given a regular meal tray. Tolerated well. jp3 14:20 Diet tray given. jp3 14:54 Rony Lutz MD is Hospitalizing Provider. kdr 16:17 Primary Nurse role handed off by Domenica Fields, BEATRICE vc 16:17 Deidra Galo RN is Primary Nurse. vc 21:30 No provider procedures requiring assistance completed. Patient admitted, IV remains in vc place. Administered Medications: 15:00 Drug: Lasix 20 mg Route: IVP; Site: right antecubital; vc 18:21 Follow up: Response: No adverse reaction vc 16:38 Drug: Lasix 20 mg Route: IVP; Site: right forearm; vc 18:21 Follow up: Response: No adverse reaction vc 16:38 Drug: Potassium Chloride 40 mEq Route: PO; vc 18:21 Follow up: Response: No adverse reaction vc Outcome: 14:55 Decision to Hospitalize by Provider. kdr 21:30 Patient left the ED. vc 21:30 Admitted to Med/surg accompanied by tech, room 208. vc 21:30 Condition: good 21:30 Instructed on the need for admit. vc Signatures: Dispatcher [employer] EDSC Pool Ugaled MD MD kdr So Ballesteros Amanda, electrician constructor supervisor EKG Tat1 Kwasi Khoury jp3 Deidra Galo, RN RN vc Domenica Fields, BEATRICE RN ll1
[2020-05-03] MEDS ORDERED: IPRATROPIUM BROM 0.5MG/2.5ML NEB PRN (15:02)
[2020-05-03] MEDS ORDERED: ALBUTEROL 2.5 MG/3 ML NEB SOL NEB PRN (15:02)
[2020-05-03] MEDS ORDERED: ACETAMINOPHEN 500 MG TAB PO PRN (15:02)
[2020-05-03] MEDS ORDERED: FUROSEMIDE 20 MG/ 2ML VIAL ONE ×2 (15:09→16:41)
--- OUTSIDE RECORDS SUMMARY | 2020-05-03 16:38 | XMS REPORT | Clinical Summary ---
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
--- OUTSIDE RECORDS SUMMARY | 2020-05-03 16:39 | XMS REPORT | Clinical Summary ---
:1940 Author Organization [facility] Address [address] [place] [address] Care Team Providers Name Role Phone Feliz Lutz Primary Care Provider Allergies Active Allergy Reactions Severity Noted Date Comments Butorphanol Tartrate Nausea And Vomiting 03/18/2017 syncope Medications Medication Sig Dispensed Refills Start Date End Date Status metoprolol Take 100 mg 0 Active (TOPROL-XL) 100 MG by mouth 24 hr tablet daily. amLODIPine Take 10 mg by 0 Activ e (NORVASC) 10 MG mouth daily. tablet simvastatin (ZOCOR) Take 20 mg by 0 Active 20 MG tablet mouth nightly. escitalopram Take 10 mg by 0 Act reji oxalate (LEXAPRO) mouth daily. 10 MG tablet brinzolamide-brimon Apply to 0 Active idine (SIMBRINZA) eye(s). 1-0.2 % DrpS travoprost Place 1 drop 0 Active (TRAVATAN Z) 0.004 into both % Drop ophthalmic eyes nightly. drops timolol (BETIMOL) 1 drop 2 0 Ac tive 0.5 % ophthalmic (two) times solution daily. loteprednol 1 drop 4 0 Active (LOTEMAX) 0.5 % (four) times ophthalmic daily. suspension pantoprazole Take 1 tablet 120 tablet 0 04/24/2020 06/23/2020 Active (PROTONIX) 40 MG (40 mg total) tablet by mouth 2 (two) times daily for 60 days. losartan-hydrochlor Take 1 tablet 0 2019 Discontinued othiazide (HYZAAR) by mouth 100-12.5 mg per daily. tablet aspirin 325 MG EC Take 325 mg 0 04/24/2020 Discontinued tablet by mouth daily. Active Problems Problem Noted Date GI bleeding 04/22/2020 Encounters Date Type Specialty Care Team Description 04/23/2020 Anesthesia Event Gastroenterology Radha Dupree CRNA 04/23/2020 Surgery Gastroenterology John Skelton MD ENDOSCOPY,BIOPS Y 04/23/2020 Travel 04/22/2020 Hospital [facility] Internal Melissa Oseguera Gastroi ntestinal hemorrhage, unspecified gastrointestinal hemorrhage type (Primary Dx); - Encounter Medicine MD Presley Peptic ulcer disease; 04/24/2020 Brann, Acute blood los s anemia; Christopher Abnormal CT of the chest MD Landy Arevalo, Celi Watkins MD after 05/03/2019 Social History Tobacco Use Types Packs/Day Years [...] travel history available. Last Filed Vital Signs Vital Sign Reading Time Taken Blood Pressure 102/53 04/24/2020 10:18 AM CDT Pulse 67 04/24/2020 10:18 AM CDT Temperature 35.9 C (96.6 F) 04/24/2020 10:18 AM CDT Respiratory Rate 18 04/24/2020 10:18 AM CDT Oxygen Saturation 98% 04/24/2020 10:18 AM CDT Inhaled Oxygen Concentration - - Weight 71.4 kg (157 lb 4.8 oz) 04/22/2020 9:00 PM CDT Height 177.8 cm (5' 10") 04/22/2020 9:00 PM CDT Body Mass Index 22.57 04/22/2020 9:00 PM CDT Plan of Treatment Not on file Implants Implanted Type Area Supervisor Photostat Device Shelf Model / Identifier Expiration Serial / Lot Date Cornea, Whole, Pre-Cut For Ek Ophthalmology Left: Unknown 08/29/2018 [id number] / Implanted: Qty: 1 on 08/19/2018 by Beth Duong MD Eye [id number] / Iol Acrysof Candice 6.0 13 17d [id number] - [id number] Ophthalmolo gy Left: [facility]G 06/03/2023 [id number] / Implanted: Qty: 1 on 01/20/2019 by Beth Duong MD Eye [id number] / Cornea Whole Cornea - [id number] Tissue Right: [facility] 03/28/2017 CORNEA / Implanted: Qty: 1 on 03/19/2017 by Beth Duong MD Graft/Yusuf bstitute Eye [facility] [id number] / Procedures Procedure Name Priority Date/Time Associated Diagnosis Comme nts RHYTHM STRIP - SCAN 05/02/2020 4:10 PM CDT RHYTHM STRIP - SCAN 04/26/2020 12:01 PM CDT TRANSFUSION SERVICE 04/25/2020 6:01 REPORT - SCAN PM CDT PREPARE Routine 04/24/2020 11:54 Results for LEUKO-REDUCED RBC PM CDT this proce dure are in the results section. TRANSFUSION SERVICE 04/24/2020 6:02 REPORT - SCAN PM CDT HEMOGLOBIN AND Routine 04/24/2020 8:35 Results f or HEMATOCRIT AM CDT this procedure are in the results section. CBC W/PLT COUNT & Routine 04/24/2020 12:47 Result s for AUTO DIFFERENTIAL AM CDT this proce dure are in the results section. BASIC METABOLIC Routine 04/24/2020 12:47 Results for PANEL (7) AM CDT this procedure are in the results section. PHOSPHORUS Routine 04/24/2020 12:47 Results for AM CDT this procedure are in the results section. MAGNESIUM Routine 04/24/2020 12:47 Results for AM CDT this procedure are in the results section. PROTHROMBIN TIME/INR Routine 04/24/2020 12:47 Res ults for AM CDT this procedure are in the results section. LIPID PANEL Routine 04/24/2020 12:47 Results for AM CDT this procedure are in the results section. CBC W/PLT COUNT & Routine 04/24/2020 12:47 Result s for AUTO DIFFERENTIAL AM CDT this proce dure are in the results section. TRANSFUSE Routine 04/23/2020 8:49 LEUKO-REDUCED RED PM CDT BLOOD CELLS CBC W/PLT COUNT & Routine 04/23/2020 4:32 Result s for AUTO DIFFERENTIAL PM CDT this proce dure are in the results section. CBC W/PLT COUNT & Routine 04/23/2020 4:32 Result s for AUTO DIFFERENTIAL PM CDT this proce dure are in the results section. REPORT OF PROCEDURE 04/23/2020 11:47 - ENDOSCOPY URL AM CDT TISSUE EXAM AP Routine 04/23/2020 10:24 Results for AM CDT this procedure are in the results section. UPPER 04/23/2020 9:30 Gastrointestinal ENDOSCOPY,BIOPSY AM CDT hemorrhage, unspecified gastrointestinal hemorrhage type CBC W/PLT COUNT & Routine 04/23/2020 9:12 Result s for AUTO DIFFERENTIAL AM CDT this proce dure are in the results section. CBC W/PLT COUNT & Routine 04/23/2020 9:12 Result s for AUTO DIFFERENTIAL AM CDT this proce dure are in the results section. ABORH, MANUAL STAT 04/23/2020 4:35 Results fo r AM CDT this procedure are in the results section. COMPREHENSIVE Routine 04/23/2020 4:35 Results fo r METABOLIC PANEL AM CDT this procedu re are in the results section. PHOSPHORUS Routine 04/23/2020 4:35 Results for AM CDT this procedure are in the results section. MAGNESIUM Routine 04/23/2020 4:35 Results for AM CDT this procedure are in the results section. PROTHROMBIN TIME/INR Routine 04/23/2020 4:35 Res ults for AM CDT this procedure are in the results section. LIPID PANEL Routine 04/23/2020 4:35 Results for AM CDT this procedure are in the results section. SARS-COV2/RT-PCR STAT 04/23/2020 12:10 Results for ([facility] & REF LABS) AM CDT this proce dure are in the results section. (CELLAVISION MANUAL Routine 04/23/2020 12:02 Resu lts for DIFF) AM CDT this procedure are in the results section. CBC W/PLT COUNT & Routine 04/23/2020 12:02 Result s for AUTO DIFFERENTIAL AM CDT this proce dure are in the results section. TYPE AND SCREEN, Routine 04/23/2020 12:02 Results for AUTOMATED AM CDT this procedure are in the results section. CBC W/PLT COUNT & Routine 04/23/2020 12:02 Result s for AUTO DIFFERENTIAL AM CDT this proce dure are in the results section. after 05/03/2019 Results RHYTHM STRIP - SCAN (05/02/2020 4:10 PM CDT)Only the most recent of2 results within the time period is included. Narrative Performed At This result has an attachment that is no t available. TRANSFUSION SERVICE REPORT - SCAN (04/25/2020 6:01 PM CDT)Only the most recent of2 resultswithin the time period is included. Narrative Performed At This result has an attachment that is no t available. Prepare Leuko-Red RBC (04/24/2020 11:54 PM CDT) CROSSMATCH COMPATIBLE [place]AF[place] TX Unit ABO B Pos SAFETRACE TX UNIT NUMBER [id number] [place] Status TX_TIMEINCHART SAFET[place]ACE TX Blood Bank Product RED BLOOD CELLS [place] PRODUCT CODE [id number] [place] Specimen Other Performing Organization Address City/State/Zipcode Phone Number [place] Hemoglobin and hematocrit (04/24/2020 8:35 AM CDT) Hemoglobin 7.9 (L) 13.7 - 17.5 GM/DL [facility] Hematocrit 24.2 (L) 40.1 - 51.0 % [facility] Specimen Blood Narrative Performed At Director Internal Communications ID - [id number] [facility] Performing Organization Address City/State/Zipcode Phone Number [facility] [address] [place] [address] CENTER CBC with platelet count + automated diff (04/24/2020 12:47 AM CDT)Only the most recent of4 resultswithin the time period is included. WBC 7.0 3.5 - 10.5 K/L [facility] ER RBC 2.30 (L) 4.63 - 6.08 M/L [facility] ER Hemoglobin 7.4 (L) 13.7 - 17.5 GM/DL [facility] ER Hematocrit 22.0 (L) 40.1 - 51.0 % [facility] ER MCV 95.7 (H)Comment: 79.0 - 92.2 fL [facility] Discordant MCV results [facility] compared to previous results; clinical correlation required. MCH 32.2 25.7 - 32.[address] [facility] MCHC 33.6 32.3 - 36.5 GM/DL [facility] RDW 14.6 (H) 11.6 - 14.4 % [facility] Platelets 113 (L) 150 - 450 K/CU MM [facility] MPV 9.8 9.4 - 12.[address] [facility] nRBC 0 0 - 0 /[address] [facility] % Neutros 41 % [facility] % Lymphs 43 % [facility] % Monos 12 % [facility] % Eos 4 % [facility] % Baso 1 % [facility] # Neutros 2.82 1.78 - 5.38 K/L [facility] # Lymphs 2.99 1.32 - 3.57 K/L [facility] # Monos 0.80 0.30 - 0.82 K/L [facility] # Eos 0.27 0.04 - 0.54 K/L [facility] ER # Baso 0.05 0.01 - 0.08 K/L [facility] ER Immature 0 0 - 1 % [facility] Granulocytes-Relative [facility] Specimen Blood Performing Organization Address City/State/Zipcode Phone Number [facility] [address] [place] [address] CENTER Prothrombin time/INR (04/24/2020 12:47 AM CDT)Only the most recent of2 results within the time period is included. Protime 17.0 (H) 11.9 - 14.2 seconds [facility] INR 1.4 <=5.9 [facility] Specimen Blood Narrative Performed At Effective 04/01/2019: PT Reference Range [facility] Change New: 11.9-14.2Previous: 11.7-14.7 RECOMMENDED COUMADIN/WARFARIN INR THERAPY RANGES STANDARD DOSE: 2.0-3.0Includes: PROPHYLAXIS for venous thrombosis, systemic embolization; TREATMENT for venous thrombosis and/or pulmonary embolus. HIGH RISK: Target INR is 2.5-3.5 for patients wiht mechanical heart valves. Performing Organization Address City/State/Zipcode Phone Number [address] [address] CENTER Phosphorus (04/24/2020 12:47 AM CDT)Only the most recent of2 resultswithin the time period is included. Phosphorus 3.2 2.3 - 4.7 mg/dL [facility] Specimen Blood Narrative Performed At Director Internal Communications ID - PIAYA L [facility] Performing Organization Address City/[facility]/Zipcode Phone Number [address] [address] CENTER Magnesium (04/24/2020 12:47 AM CDT)Only the most recent of2 resultswithin the time period is included. Magnesium 1.9 1.6 - 2.6 mg/dL [facility] Specimen Blood Narrative Performed At Director Internal Communications ID - PIAYA L [facility] Performing Organization Address City/State/Zipcode Phone Number [address] [address] CENTER Lipid panel (04/24/2020 12:47 AM CDT)Only the most recent of2 resultswithin the time period is included. Triglycerides 63 mg/dL [facility] Cholesterol 81 mg/dL [facility] HDL 27 mg/dL [facility] LDL Calculated 41 mg/dL [facility] Specimen Blood Narrative Performed At Triglyceride Reference Range: [facility] Low Risk <150 [id number] High Risk 200-499 Very High Risk>=500 Cholesterol Reference Range: Low Risk <200 [id number] High Risk>240 HDL Cholesterol Reference Range: Low Risk >=60 High Risk <40 LDL Cholesterol Reference Range: Optimal<100 Near [id number] [id number] Jugt431-153 Very High >=190 Director Internal Communications ID - PIJASON L Performing Organization Address [facility]/Zipcode Phone Number [address] [address] CENTER Basic Metabolic Panel (04/24/2020 12:47 AM CDT) Sodium 140 136 - 145 meq/L [facility] Potassium 3.6 3.5 - 5.1 meq/L [facility] Chloride 113 (H) 98 - 107 meq/L [facility] CO2 23 22 - 29 meq/L [facility] BUN 42 (H) 7 - 21 mg/dL [facility] Creatinine 1.20 0.57 - 1.25 mg/dL [facility] Glucose 84 70 - 105 mg/dL [facility] Calcium 7.8 (L) 8.4 - 10.2 mg/dL [facility] EGFR 59Comment: ESTIMATED GFR IS mL/min/1.73 sq m [facility] NOT ACCURATE CREATININE GA DICAL CONFLUENCE CLEARANCE IN PREDICTING GLOMERULAR FILTRATION RATE. ESTIMATED GFR IS NOT APPLICABLE FOR DIALYSIS PATIENTS. Specimen Blood Narrative Performed At Director Internal Communications ID - PIJASON L [facility] MED [facility] Performing Organization Address City/[facility]/Zipcode Phone Number [facility] [address] [place] [address] CENTER Transfuse Leuko-Red RBC (04/23/2020 8:49 PM CDT)Only the most recent of2 resultswithin the time period is included.REPORT OF PROCEDURE - ENDOSCOPY URL (04/23/2020 11:47 AM CDT) Narrative Performed At This result has an attachment that is no t available. Tissue Exam (04/23/2020 10:24 AM CDT) Case Report Surgical Pathology Report Case: [id number] [facility] Authorizing Provider:John De La Torre MD Collected: 04/23/2020 10:24 AM [facility] Ordering Location: [address] Received:04/25/2020 09:36 AM Service Pathologist: Mendoza Velasco MD Specimen:Biopsy, Gas tric, random gastric R/O H. Pylori ADDENDUM REASON FOR ADDENDUM: TO REPORT IMMUNOSTAIN ON PA RT A [facility] RESULT: IMMUNOSTAIN FOR H.PYLORI: NEGATIVE. DIAGNOSIS A. STOMACH, RANDOM BIOPSIES: [facility] - ANTRAL MUCOSA WITH ACTIVE CHRONIC GASTRITIS [facility] - OXYNTIC MUCOSA WITH NO SIGNIFICANT DIAGNOSTI C ABNORMALITY - NEGATIVE FOR INTESTINAL METAPLASIA, DYSPLASI A, MALIGNANCY Signing Pathologist Direct Phone Line: [phone] COMMENT Warthin-starry stain is equi vocal. Immunostain for H.pylori is ordered and will be reported in an addendum. [facility] CPT Code(s) [address] [facility] [address] [facility] CLINICAL HISTORY Gastrointestinal hemorrhage, [facility] unspecified gastrointestinal [facility] hemorrhage type [K92.2] SPECIMEN SOURCE Gastric biopsy [facility] GROSS DESCRIPTION Received in formalin labeled with the patient's name, accession number and "gastric biopsy" are 3 henderson-pink tissue fragments measuring up to 0.2 cm in greatest dimension which are filtered and submitted in toto in A1. [facility] SHIRA Riggs (TIBURCIO)cm MICROSCOPIC DESCRIPTION Performed. [facility] SPECIAL STUDIES The interpretation of this c ase included the use of immunohistochemistry or special stains. [facility] ER Control Slides Examined: In -house known positive controls were evaluated along with the test tissue. These control slides run alongside of the patients sample show appropriate staining. Internal posit reji and negative controls when available are raji mina Immunohistochemistry jose manuel berkowitz testing was performed at [facility] Pathology Laboratory where it was developed and its performance characteristics were determined. It has not be en cleared or approved by [facility] U.S. Food and Drug Administration. The FDA has determined that such clearance or approval is not necessary. The test is used for clinical purposes. It should not be regarde d as investigational or for research. This laboratory is certified under the Clinical Laboratory Improvement Amendments of 1988 (CLIA-88) as qualified to perform high complexity clinical laboratory testing. Specimen Tissue Performing Organization Address City/[facility]/Zipcode Phone Number [address] [address] CENTER ABORH, manual (04/23/2020 4:35 AM CDT) Rh Factor POS [facility] ABO Grouping B [facility] Specimen Blood Performing Organization Address City/[facility]/Zipcode Phone Number [address] [address] Comprehensive metabolic panel (04/23/2020 4:35 AM CDT) Protein, Total 5.1 (L) 6.0 - 8.3 gm/dL [facility] ER Albumin 3.0 (L) 3.5 - 5.0 g/dL [facility] Alkaline Phosphatase 34 (L) 40 - 150 U/L [facility] ER Total Bilirubin 0.6 0.2 - 1.2 mg/dL [facility] Sodium 140 136 - 145 meq/L [facility] Potassium 3.8 3.5 - 5.1 meq/L [facility] Chloride 113 (H) 98 - 107 meq/L [facility] CO2 20 (L) 22 - 29 meq/L [facility] BUN 71 (H) 7 - 21 mg/dL [facility] ER Creatinine 1.53 (H) 0.57 - 1.25 mg/dL [facility] ER Glucose 106 (H) 70 - 105 mg/dL [facility] ER Calcium 8.0 (L) 8.4 - 10.2 mg/dL [facility] ER AST 39 (H) 5 - 34 U/L [facility] ER ALT 26 6 - 55 U/L [facility] ER EGFR 44Comment: ESTIMATED GFR mL/min/1.73 sq m [facility] IS NOT ACCURATE [facility] CREATININE CLEARANCE IN PREDICTING GLOMERULAR FILTRATION RATE. ESTIMATED GFR IS NOT APPLICABLE FOR DIALYSIS PATIENTS. Specimen Blood Narrative Performed At Director Internal Communications ID - DB [facility] Performing Organization Address City/State/Zipcode Phone Number [address] [address] CENTER SARS-CoV2/RT-PCR (Asymptomatic ONLY) (04/23/2020 12:10 AM CDT) SARS-COV2/RT-PCR Not Detected Not Detected, Negative [facility] SARS-COV-2 PERFORMING LAB BSC [facility] Specimen Other Narrative Performed At Negative results do not preclude SARS-CoV-2 [facility] infection and should not be used as the sole basis for patient management decisions. Negative results must be combined with clinical observations, patient history, and epidemiological information. A false negative result may occur if a specimen is improperly collected, transported or handled. The limit of detection for this assay is 250 copies/mL. This SARS CoV-2 test is a rapid, real-time RT-PCR test intended for the qualitative detection of nucleic acid from SARS-CoV-2 in a nasopharyngeal swab specimen collected from individuals suspected of COVID-19 by their healthcare provider. This test has not been Food and Drug Administration (FDA) cleared or approved and has been authorized by FDA under an Emergency Use Authorization (EUA). This EUA will be effective until the declaration that circumstances exist justifying the authorization of the emergency use of in vitro diagnostic tests for detection and/or diagnosis of COVID-19 is terminated under Section 564(b)(2) of the Act or the EUA is revoked under Section 564(g) of the Act. Fact Sheet for Healthcare Providers: https://www.Getix/Documents/Xpert%20Xpre ss%20SARS%20CoV-2/Fact%20Sheets/3023802%20SAR S-COV-2%20HEALTHCARE%20PROVIDERS%20FACT%20SHEE T.pdf Fact Sheet for Healthcare Patients: https://www.Getix/Documents/Xpert%20Xpre ss%20SARS%20CoV-2/Fact%20Sheets/3023801%20SAR S-COV-2%20PATIENT%20FACT%20SHEET.pdf Performing Laboratory: [address] [place] [address] Performing Organization Address City/State/[place] [address] CENTER Manual Differential (04/23/2020 12:02 AM CDT) % Neutros 80 % [facility] % Lymphs 12 % [facility] % Monos 8 % [facility] # Neutros 10.00 (H) 1.78 - 5.38 K/ul [facility] # Lymphs 1.50 1.32 - 3.57 K/ul [facility] # Monos 1.00 (H) 0.30 - 0.82 K/uL [facility] CENTER Total Counted 100 [facility] WBC Morphology Normal [facility] Platelet Morphology Normal [facility] Polychromasia 1+ few [facility] Ovalocytes 2+ moderate [facility] Artifact Present [facility] Helmet Cells 1+ few [facility] Platelet Conc Adequate [facility] Specimen Blood Narrative Performed At Director Internal Communications ID - Lindsey Estella [facility] User comments: Slide comments: Performing Organization Address City/State/Zipcode Phone Number [address] [address] CENTER Type and screen, automated (04/23/2020 12:02 AM CDT) ABO/RH AUTOMATED (BEAKER) B POSITIVE [facility] Ab Scrn NEGATIVE [facility] Specimen Blood Performing Organization Address City/State/Zipcode Phone Number [address] [address] after 05/03/2019 Insurance Payer Benefit Plan / Subscriber ID Type Phone Address Group [employer] - MEDICARE AETNA MEDICARE HMO xxxxxxxx [address] [place] [address] CDC REVIEW CDC REVIEW xxxxx[place] [address] Advance Directives For more information, please contact:[address] [phone] Code Status Date Activated Date Inactivated Comments Full Code 04/22/2020 10:33 PM 04/24/2020 2:44 PM This code status was determined by: Patient
--- OUTSIDE RECORDS SUMMARY | 2020-05-03 16:40 | XMS REPORT | Continuity of Care Document ---
:1940 Author Organization [facility] t Address [facility] [address] [place] [address] Care Team Providers Name Role Phone Nelda Feliz Primary Care Physician PRESLEY BHARDWAJ Attending Clinician Unavailable Presley Bhardwaj MD Attending Clinician Mickey Riley MD Attending Clinician June Bill MD Attending Clinician Alexsander Dupree CRNA Attending Clinician Sheri Skelton MD Attending Clinician PRESLEY BHARDWAJ Admitting Clinician Unavailable Payers Payer Name Policy Type Policy Number Effective Date Expiration Date S alley AETNA - MEDICARE MGD xxxxxxxx [facility] CAREAETNA MEDICARE [facility] POS Medical [id number] [address] [facility] REVIEWCDC xxxxxxxx [facility] REVIEWxxxxxxxxPO [facility] [id number] Center Problems Condition Condition Condition Status Onset Resolution Last Treating Co mments Source Name Details Category Date Date Treatment Clinician Date GI GI Disease Active [facility] bleeding [facility] 04-22 [facility] 00:[facility]: [facility] 00 Center Allergies, Adverse Reactions, Alerts Allergy Allergy Status Severity Reaction(s) Onset Inactive Treating Comm ents Source Name Type Date Date Clinician Dorothy Logan Active Nausea And 2017-[address] nol ty to Vomiting 5-15 [facility] - Tartrate adverse 00:00: Medical reaction 00 Center s Social History Social Habit Start Date Stop Date Quantity Comments Source Sex Assigned At [facility] Smoking Status Start Date Stop Date Source Never smoker [facility] St k[facility] edical Center Medications Ordered Filled Start Stop Current Ordering Indication Dosage Frequency Signature Comments Components Source Medication Medication Date Date Medication? Clinician (SIG) Name Name losartan-hy 2019- No 1{tbl} QD Take [address] drochloroth 6-21 06-21 tablet by Lisa rai 09:29: 00:00 mouth Medical (HYZAAR) 14 :00 daily. [place] 100-12.5 mg per tablet aspirin 325 2019- No 325mg QD Take [address] MG EC - 06-21 mg by [facility] - tablet 09:29: 00:00 mouth Medical 14 :00 daily. [place] pantoprazol 2020- Yes 40mg Q.5D Take [address] e 6-21 08-20 tablet (40 [facility] - (PROTONIX) 00:00: 23:59 mg total) edical 40 MG 00 :00 by mouth 2 [place] tablet (two) times daily for 60 days. loteprednol Yes 1[drp] Q.25D [address] (LOTEMAX) 3-18 (four) [facility] - 0.5 % 15:29: times Medical ophthalmic 26 daily. [place] suspension amLODIPine Yes 10mg QD Take [address] (NORVASC) 5-15 by mouth [facility] - 10 MG 14:01: daily. Medical tablet 22 [place] simvastatin Yes 20mg QD Take [address] (ZOCOR) 20 5-15 by mouth [facility] - MG tablet 14:01: nightly. Medi pau 22 [place] escitalopra Yes 10mg QD Take [address] m oxalate 5-15 by mouth [facility] - (LEXAPRO) 14:01: daily. Medica l 10 MG 22 [place] tablet brinzolamid Yes Apply to [facility] e-brimonidi 5-15 eye(s). [facility] - ne 14:01: Medical (SIMBRINZA) 22 [place] 1-0.2 % DrpS travoprost Yes 1[drp] QD Place [address] (TRAVATAN 5-15 drop into [facility] - Z) 0.004 % 14:01: both eyes Me dical Drop 22 nightly. [place] ophthalmic drops timolol Yes 1[drp] Q.5D 1 drop 2 [facility] (BETIMOL) 5-15 (two) [facility] - 0.5 % 14:01: times Medical ophthalmic 22 daily. [place] solution metoprolol Yes 100mg QD Take [address] (TOPROL-XL) 5-15 mg by [facility] - 100 MG 24 14:01: mouth Medical hr tablet 21 daily. [place] Vital Signs Vital Name Observation Time Observation Value Comments Source Systolic blood 2020-04-24 10:18:00 102 mm[Hg] [facility] Diastolic blood 2020-04-24 10:18:00 53 mm[Hg] [facility] Heart rate 2020-04-24 10:18:00 67 /min [facility] Body temperature 2020-04-24 10:18:00 35.89 Alana [facility] Respiratory rate 2020-04-24 10:18:00 18 /min [facility] Oxygen saturation in 2020-04-24 10:18:00 98 /min [facility] Arterial blood by Medical Ce nter Pulse oximetry Body height 2020-04-22 21:00:00 177.8 cm [facility] Body weight Measured 2020-04-22 21:00:00 71.351 kg [facility] BMI 2020-04-22 21:00:00 22.57 kg/m2 [facility] Procedures Procedure Date / Time Performed Performing Clinician Charmaine kirit RHYTHM STRIP - SCAN 2020-05-02 16:10:46 Provider, Default [facility] RHYTHM STRIP - SCAN 2020-04-26 12:01:36 Provider, Default [facility] TRANSFUSION SERVICE 2020-04-25 18:01:48 Provider, Default [facility] REPORT SCAN [facility] PREPARE LEUKO-REDUCED RBC 2020-04-24 23:54:00 Celi Bill [facility] TRANSFUSION SERVICE 2020-04-24 18:02:14 Provider, Ivania [facility] REPORT - SCAN [facility] HEMOGLOBIN AND HEMATOCRIT 2020-04-24 08:35:00 Celi Bill [facility] LIPID PANEL 2020-04-24 00:47:00 Prem, [facility] PROTHROMBIN TIME/INR 2020-04-24 00:47:00 [facility], [facility] MAGNESIUM 2020-04-24 00:47:00 Prem, [facility] PHOSPHORUS 2020-04-24 00:47:00 Prem, [facility] BASIC METABOLIC PANEL (7) 2020-04-24 00:47:00 [facility], [facility] CBC W/PLT COUNT & AUTO 2020-04-24 00:47:00 [facility] TRANSFUSE LEUKO-REDUCED 2020-04-23 20:49:51 Celi Bill [facility] RED BLOOD CELLS [facility] CBC W/PLT COUNT & AUTO 2020-04-23 16:32:00 [facility], [facility] REPORT OF PROCEDURE - 2020-04-23 11:47:34 Sheikh [facility] ENDOSCOPY [facility] TISSUE EXAM 2020-04-23 10:24:00 Sheikh [facility] UPPER ENDOSCOPY,BIOPSY 2020-04-23 09:30:00 Sheikh [facility] CBC W/PLT COUNT & AUTO 2020-04-23 09:12:00 [facility] LIPID PANEL 2020-04-23 04:35:00 [facility], [facility] PROTHROMBIN TIME/INR 2020-04-23 04:35:00 [facility], [facility] MAGNESIUM 2020-04-23 04:35:00 [facility], [facility] PHOSPHORUS 2020-04-23 04:35:00 [facility], [facility] COMPREHENSIVE METABOLIC 2020-04-23 04:35:00 [facility], [facility], MANUAL 2020-04-23 04:35:00 Harley Soheila Grande [facility] SARS-COV2/RT-PCR ([facility] & 2020-04-23 00:10:[address] [facility] - REF LABS) Medical Center TYPE AND SCREEN, 2020-04-23 00:02:00 [facility] AUTOMATED [facility] CBC W/PLT COUNT & AUTO 2020-04-23 00:02:00 [facility] DIFFERENTIAL [facility] (CELLAVISION MANUAL DIFF) 2020-04-23 00:02:00 [facility] Plan of Care Planned Activity Planned Date Details Comments Source Future Scheduled 2020-06-04 INFLUENZA VACCINE [place] [facility] 00:00:00 [code = INFLUENZA VACCINE] Future Scheduled 2006 65+ PNEUMOCOCCAL [place] [facility] 00:00:00 VACCINE (1 of 2 - PCV13) [code = 65+ PNEUMOCOCCAL VACCINE (1 of 2 - PCV13)] Future Scheduled 1991 SHINGLES VACCINES (#1) [place] [facility] 00:00:00 [code = SHINGLES VACCINES (#1)] Results Test Description Test Time Test Comments Results Result Comments Source Tissue Exam 2020-04-26 14:29:00 Test Item Value Reference Range Interpretation Comme nts Case Report (test code = 104) Surgical Pathology Report Case: [id number] Authorizing Provider: John Skelton MD Collected: 04/23/2020 10:24 AM Ordering Location: [address] Received: 04/25/2020 09:36 AM Service Pathologist: Mendoza Velasco MD Specimen: Biopsy, Gastric, random gastric R/O H. Pylori ADDENDUM (test code = 3381) g7ujdSYmTZGpyELtSjEmVLAsKTSxj2keUIEzlRF u YwHaSiLkGvXgYsejjUCxFGUdGhFrv4qbc950iPIp g6otZUZcEwO8pWFaRWZlqOGiU847LSVgCEkww5sl w9TsYTMuaOCzq8C6BRXBqqdsiSn0nUzvJ39qd1L1 BvbbU2cvYKHqSZclVARwCOcjwUBqVIO2KICfDTN8 JKzktuSubgP4YOwvoGXzBzI2FOb3d9vvvCniRCQh NMF7j3iwFWdnktSqRL2lrz6tgZn2g6bsinMpJBZk WVFdkHNBKLKfA1RjmAkwXo7ymLt4zKsyDxtaCRF2 Gnb5JP2icy84btg4jXpvBFKeykahDfA8IRptZJHz mqomZOp6PZtcOLWkdFL4BMFnfNUdW3OeNYGbAU8m now4ARQ9DKacJWTyPqF9FJDnqTLhPWTkzTjiDKol j754QIF2TaVmXX3nI2Zqw2O7tQ3meSDqVFAnxBKb KbVtDOCsos9eeDFgZNdom7FqBEK2mtU9oLZzsOPo AMPsDV68Kyidt6TgYtkjTEA5YSDgcoKaw1Jac2qh JdNppsTqO5pqH0MfGZEgHBErPKLmIkVqfnViu6Rm q8JptUXouZe2z4wiWRZpZYBtzMqao4kuIAB3LZLr O5A9tYNvh5qjCYzkVCUnyAE7jeW0BGLuyFFiU4Nl sA1kUYHsAC9ezec7k7bpXTL3XZbqDGVaIwE0yyA2 XHFluWQeZVIbzGcvAKnvs370FOX3BwKhSBGgd3Po T6ZddQptJ92cqGovX25qRLKgfAaneG9daKontL0v ZjBcZnMyMFxxbFxwbGFpblxmMFxmczIwXHBsYWlu HSXuLEWrIiOyHwHNK21RYMRWHtSQKFOYUaOZZVmr GH9dNtWVG0FWTOvQKEFXE1VIFWoWDY9JGBPTOeXw BYijIZIqkUNgJTXUW8JGNNvdvSPnNNoZXFKYR2YL SKaNVDFKFaDIMnVEES2IPGbuNsIAZUPEFhWoHHPo clxwYXJ9 DIAGNOSIS (test code = 3220) m4seoZQwEHYcw0pjSXLshOWwEnFdOqMiRlDgRj pc hAFkOWjvbkPmGDadb0RsW4VkWrKlEKczoaJfTDCe UwxlwzrcFIXoLVY6vkHzLNGlITelPRNkBHsnGl0o iRXcaEquGbBnJJPxi4zmjaWCulmavDu6g2urJNFd UbD6cYNyBLgnF6gvjcSsrKKjCLKvUQx0aZ93TRSg hA7gwCBhAUchtmYzBRhegxUtnvCmXtt3PNPwX1hs QOBnVBJmK3WaKS7oRMMjAnf1FRX8IDX8vIctz0K6 mGXdlPVvvJsiGwNbDsIbUIOVy7BdYVj4xFamW0Yc MCJnKzB2rZAnOBAbPQywWRJoCJSxpoF8rM02VYye hvX9sBIks0Ghe37aw419pK9irDXwMLM5TEWhRFEp kMXuUSAuSQP4NSXxkJKsY0i2RnWfxRRcL0X5SqRr gYBhS6P8EmHpmKEiD0B9LkVtdPItXWXvuEIoAa0c qEEqfCQxrd9mgi44KIK5d7GvjKntCFK6CFG1RvZy Oj8tzIXxOJRuVU0uTqVyoITsONAcar24xGneUWly ntCbaC1sMfXvRP0gbGlwf64iBIKkNH9puI7ijl5h sdXiGLfkaZChnMY2qcezBRH2QBHsftKxe7Lre0pm GnXbcoOdA3zhB8QcMTCjHFJdVYVfJzJoyuFkf3Tm w2BvsPHmwCm0e9ftOBXjBLRdzFlvc7uqZWX7SQIa F3D2pCXgq3zdYFytJZFotPK7gbmzQZvbLWDswtS2 cfrrRNecDDJtzWM0fbeyCWygVDCgQfA0dkkuQMhq NJQnFLB8MKmub617PKS8FQjwQamyUCtkZQJqhyGj bnRccGduZGVjXHBsYWluXHBsYWluXGYwXGZzMjBc aSOfFVxbq3BymkGfnDciDRSlHHi3skJyvivkkDi6 hRIomGmuDPOtsVtvhX2gZdYhDcXzUSaesADxqznq MVxmczIwIEEuIFxwbGFpblxmMVxmczIwXGxhbmcx KTOeFBbqV4hfPvXkJQGlpIopPNzgb9EvTHQzVUNz RWwwicZsSVv0flPoLTBEO81MX1fcHXkgsWMjswfq MJaxzdOkBWYMClDJPQHzjAihiY7sCyVqZhGuTMyc ZM7zNIIdS5zrgJXyZUBkBUBjS7rkNoFlvH5xhCtr RVdvDmNhMzEmIWhklOAqdASUVY8KI0egtFCnyzey RCddulXdNWkBN2xjsALhmtacGOmwmyOvZWgyhnxx BKDmLBseK9foDaNmORDmbYysAYcme0UoRDGuUGCo ZUkxnpFqQXm8sgHvVVgxzWSoCZCxAZxmWAUnKLOw MjAgIFxwbGFpblxmMVxmczIwXGxhbmcxMDMzXGhp T2egUkThUMBvrTccIIwir9WmMKEqPJEaOMkypzVx APv5zjDbUD5tqIpfzB0jCyDkHdLpAWFaDDTkKFaq XGYxXGZzMjBcbGFuZzEwMzNcaGljaFxmMVxkYmNo SKEkAAmyQ6bpYjCmZ9ZlEBNaSbDzzKBgW3xcWMVR KFQVUTSQVESZU5SgAOOvZBjzHFHhGIRpViWjW7yS QHMefKnrvC5nBeWbZtIfVVmtFP7jSPCkJ4xrpHLj UYTsNWXgN5blYnOizZ8evLfmVUfcLdTnIrDmZZbh fOBatQUJK5CIAgMetGnirI1sHzHqJtGbAIXrC6zP H46WS9rygGQopzzxYIokmdQvVMyjmeovUEOeCLsn V9fuGbSvLJOrhJezDCvye9ImQCTtGHXpTCshbqMf VYr2grMtCSWWQCDZWmtOIHMfjTgstR5iAzHhNlOb NMdxWFYmLD5lIW2YOT2NLQSwMALZZ1NAZEnKTAsd Qj5sW2qYHhpPQLDTGgYlKKoSB00HP8NWOtKEOp1C Mp4ASInBTPfcIDMdiAXqHZfjc0NlznDvgBlzWNDl VPXgXCVmHMwuDGSuFQAtQdQtaFrykX7gMqCqRbZi MCAgXHBsYWluXGYxXGZzMjBcbGFuZzEwMzNcaGlj dGyaAOhdZeRqMLReNQgpK3hgXvPxS0CzRNHvTtZp yOHxP1pnIWuzbLGdojieUFjsthAkSTWsdFtffQ9g UuIbJyYfGRizXJ5rBRKaC6ebhIPsMCJdLFQiU5rq HyWvwJ4rbKtzIRirRcVyWfMeZYxurAXruTDpReRH UOXBQgPyQk4DRJeDKZVBXTaAIHgxJGAHLXCDLBQA VPitGVaNNFhIO1xQLTJFWYoFZ35YRuFDXXSkLKeq MZQnBFGpSjWwuWKtBWZihp44RTU9VpItt5E8GCM5 BDRgDXVme3usZIAxmPPdFsAaCgIoTqIfTruezLNu HJQxKxEve8hky833uGEcs2jfDARqXlR8lVZbBVZn aLWjC272EZSwNOlbv2wuo8YxEMBprRLcx9D7XGMH ibwzwXl7qAipI90ah5W5KtjiT5otNOXqFIIxK0Ef NA6oZWZfTrh2RWI8ERT8PWVwQVVcP3ZlAM7oPTHx sVSmJIq0q5lqpLjzPDQrVVS4k9xfAPbfvsLqVM2z dk8ozWz9r9nsfdFlXHHrWNBwtLJHKAPkM0QhyDmo Tw5usOv2mMxuPqlfQHY0Sdo9BQ6ebr82ykq3nBob AWKukmufFrW4KXaqFZRhacwjGKs5USxhZUMltOX5 LXCneWIgZ6PmRIIvSC2aotw1JBQ0PTmvCPKjBkT8 MMAszJQyHMSiyHygMMrxp151TSK0FkTzQW3gI5Df g9K9eD7zgGVcAHAxoGRxXnWbLBVrqq5moPDdLMfg i1VmRHR9twM4vBZcoEViXBRpTcM0EWkbLF5dsw98 DOGySLR5kh7unVMqkQncqkYoeETkFFkwD6EsEWYr a541TAIcP9FdILOqa7K2ztUtTfJhYMPrxBY6uzC6 GQZrAZ6wgkrus3uoLHwcXCfiSQCusqW7vqN8BAYn hMOlK5XxtI9yBSTlDG4kypuck0wgPYK0VTjyCNOx YRH5FmPdDIWdm9Rjfic0OtDvs5XllJEfHLsxV95f x753BJEsqsJbC9dfbWSasavkoDAuqbcbZChraaM4 AVZmDLcgobwfJAYlCSnjT3amFpYhWLZenRkqWAra q0FuOBWuRDWoBvTxjCTpLPUyEay4FYPuwUOkLGAd YwDcX6ldcftpVkHSLQCxj8csQ2krnTBYtADsB3Vo KNyfwhKqKTmnCSbtUDOlELT3QU5sGMBsQZNkon55 COMMENT (test code = 3359) z2xxpKTkNUIzcCTxKjGqXAPwUFGpv2obMWVbyJOy JqEkYjZzRcCjKsixpEDaMIUhWcOdo5udu853jYWe z4fwMNVxJmJ1nEBfHLGzkFHgV137CNOxKPppi0yc s2VtQKOuvDTjv2R0PMBZrfnalKq8vWzuZ05gd6L1 AyupV6dhNZGpWEnlVFSpNPbqmGHzHAS0KVVuLOR4 EIdankKradJ5TXjeoVQaXvI5IAm6r9gbeOmmZUGh GUE2g2rpYKnopsHuXO1elq9xzGq5e4qigoNwNGRy BVCmvNCCWVFqB1PbaUeeLo7qlGj0dOljVkvoOFH2 Vkz7TS1nim11ngx4eRggDTWnnvupGeI4SAnqFMSz edeaADx1AUulWJTbpEpiTEvaNFNvutvyLZivUEKv zPsxYIbpCGHtLcilEAopMYCkDEJ4GQhjg999IAJ1 OEges8tlw2ongWPaCrf6QSKlWtPnXoteGTuxd6Rm d3lpNGNfjz6kSMW4rHCgwZpdi7W2pQRdGFKupNVo heFwWEPtMeL2ZRioVI1syp68FFKgSWL3lj3iuLDu wDzabrYxeZMcGTihP3AlEDRmq834VVNcS5LyFEBu n0K9llKbGlRmZSHxoAA6jyZ8QJMfRSl6jJWlbrN9 qvVlnGPrL5jcnI42DdSuySPmN9NhqD10SlWcgFOs T5DevQ02WiEuvTWqK8QfwV59XzKxlVNiTFUdaQLl Xy0nkZYukVRqd5QuhDEdORmcO65fr983FFRkmtCo O4jpmDIamhmqkYHfwiqhCColblXsFMCxNBYyUTui KJSvNRBgSgMxgJxjsQ3mAnDsZvRpFFKGDMW5dYcn SOY7JZWusWNcwWFvpiOlmyVwsKIykj5bDCmqSAPZ mI70jb2uaGIlrqJbm4OuOB8ecYbtzeyqfMCou2Ve VMLwDNSadqNhg6eniAAjSQCwVHXlpjUnDVJwpkLp kkBcAYSkmfQ3oI5yyESwUKRuih6= CPT Code(s) (test code = 3357) e1geeZGhSWVhbVYxGdBzNONmUONsk6phRWSr bGFu WwGwVpBkPsHkKazbnDAxHWHaRuOms2llm878mQDr z2xwZVFjKzX6qGSqPWJpsMPqW022NACbDGqtn9hp t4TmGUYvyCWhh1F5AACRjygwvLy0tIedA12ap4T8 YhozZ2yrOXKjFZIsD5ZaWL1jSSXkMfc5SQK9CCK8 ZWUlOEMqF1UvJW6qMWXyjBXdTIs8o4oxbKjyFHNy PEE2j9ucRXtwajPyQY1rob3csPg5i1rqitOsMZPf YZIhzZLZZDRhA5WqwLthPz9xnVq6pBgbUceaQKN7 Npa6HJ9vqj90npi0eFewUMYwyhzpGkP1HKwvCWSu wzgaSRg1PLflFSSmuPylIQmsHEDtngabKYxmQTLr kAowREaoSICdRdaoOVsmRZYpQJI4KBwhv282CSX5 UGaya4pfu5dmgNSrLbz2RDInLdLmRlebSZoko3Sp n7zkCTTmzh9hLVG7zTSgmAzyu9Z8dMQuZRHdrHWk csPdCDLxYtJ9BDmpWB6ffz85UBMtKBV9xn5vfFNc eYuviuNfjPWmRZffG4MeAJUnu355BCVrR2DjVJCu j8Z2pcQxGoMeNWYxaYY2uyG5GXJdUTh6eZStydA1 tgZfgRMsL8klmT17AiRjgIQxF2EnnP65UuDnxPTu B8EclK73TeKctUPiB5VcoJ55YbYwhMFaVCEzrAPr Aq8njJYcfBNbm4GtpUCjGOexK90bb741BLIuavZd E5upiLRvaqdddRVsbefoXNyzqfF0VLFpCJFiABpm XGYxXGZzMjBcbGFuZzEwMzNcaGljaFxmMVxkYmNo BFSrRIpkY5ydOkEzJiTaUGH7QQYuWVpnTUGkHMqu NDJccGFyfQ== CLINICAL HISTORY (test code = 3356) i9savMEdELVdoPCqCaRtLDElFKXwe8o cZGVmbGFu ZeBmGwRjXgJoUjshzNEyQGUnVsIct2oid682yLOf h2dmSHHsZqI6jVLeOHObpRDkZ079UQHvLNlrs3rr q6LkLYUhwTCyq4M3PKCMkznzsRx3dBhuO18iq4P6 BwlpY6dlTXMcOQQyS5TfFC6cNFCeHom4CEH2IDU3 RYWuRYUrO0BsIS8jBKHoaOUuPQt8w4ztfQftNGTc CJZ1e2moSXhdxyOnJI0xsl9acBx8m7vmpwQiGEIx UMAraWUASAOcZ5RdrHoeEs9uiMr7nYloLohkSSX1 Kyq0OS3wwy51zjb9fCykTARljrmpMrQ7DYbtGXWk tjzjHDs1QGoyOWGuwTnrXNfeQQOolmrdGTtsVJCl kNzrPZveWPXvFnclONmgGVCjWLO6JNjvd282TKH0 XTdjz7kbc9qcmPInDdb5VHXeFoZeUeqlOCkqv5Xj u0xyWCSdws7vRMS2qTCpjHkre3V4bUDyWSWwdLNv ovXxXLFpRkO4OVniSZ6xrw20VONwVGK9li1mgMTa sQfczhKynHZvIGyzS6EpJFIbm069UWPdR6NdNVWw n8V9iyHaLkKcAWOonDW9xwC7AFRfSAu0kNCnqiS8 rhBykAUpP1ekrY79AjJlfFCtS2DswX60KmZmxAWw U9DnbK88HgCpeQHoG9ZkwK09BwWruDCeWTMdnHKm Sq7dtPBwmZRxu6LqlOHdDJsmJ65ac195JZGujbOm O4cqtAVqtgyioGNywfzhLMvxenM5WSo0mcEddcvr iFhhjGPsotgeQOqtlyEjLVrxjpyoOFQmFZydO2oi WnHqJDSfzEbpNCkee5PzDQHbXCSpMoQaH0QjgLUz iE04TZY4fZ5ynXYwBG3sjlDpAGuxDHP5nvHjRJBp DlzbSWGcXYA6uf2pigIwu7FwhuHuVAcwiA6lcutj V9SbrXrcVEYaFwsrAsOiUYVvac7= SPECIMEN SOURCE (test code = 3377) u6gwdDDzZNMylPVvUnUyKQDhWCMit2ya ZGVmbGFu HyQqJfCnZsDcLfnyeWCnBXHyNbMfv5inn063nRSc g1ysWOSpGaS7jHGmYIIpiBJiW123w4fyt8upphOk mKP4IOJnOAC1XEjnmsDouiO7NWyxdRVfEaB4EOzk ydQoNPisoaTqqpQmEcg2HRJtF095XLC9dBkwj8ua KYI0FXLoZKXoYnLlVx9piGWoO791FQJmOLEBMZMu jTi2EXIodkUuaqFrjXPSv734C386i7tvJWIyrjIx eXmQjjgfo3qmJ673TLKzpFKmyfOuWyGhHXDavGNx oRT4ISPeNJ9aagiuQtYmFO8bidfdDxCsYW4vqzt4 SlLzTT8qwyggXuBnRQgnQXAtimezIKUyg4Weudws QP5qK1Dzl0F6iV0cqWAuCLKtaCThBhAyJVVlht6y jQApYTxuj3JhYEN7voD6qEIgoSReJYEoLC95Xoso h7VoJwlkAYQ5KZBfphKgs1Wnp9jnGvPqvuCcU0cu E5PrXDLyVUXhPQInWzUhyoIqx1Zfi5QqqKRaqIa5 c7ysHXNgGXUuxOgyd9alOLH2KQAnQ3S8lKTbq6vq NOxxSQHdmQX3jzsmOMtsKLMzahY6cmdmSOhaCYNo pAR8tnetKKkaDHKiZtY5mkoiIIlhWOOdDBT9QHup k850AGT7AYmdCijrJEhrHLCojzCutoJszEcfPCZf XHYeILfqRQAnQFdoUORxIVJrKxDgjTsmqRwlnT6f ItZrIeKjWWztFU1pGRDgM9nlqVDvMMDwGLTcC5qc PgZwcQ9dyHbyJPitfsKtWMmtn1UbbUIrBhumtNV4 XHBhcn0= GROSS DESCRIPTION (test code = 3366) h7vmhGHwFJRknOTbOtZbQVRnJIEiv7 lcZGVmbGFu [file] cGFyfQ== MICROSCOPIC DESCRIPTION (test code = k3sldRRgCXWbsAQeIyDfFQBzQEFuf0 [place] [address]) HcJeKwAdVdKiHmsktHWlNGZuUoWqm7jqw245zIXd v7lrMZViObY8tAFaWZKzfIWrA711XAHfXTwzp8bw p5RnMKXyyDFun1D4IBFKpruezZi0xVmoG37nz0D0 YrjsK2rmIGBgIPspTIPoVLdzxYJiYER8LBYtYIF3 TBjszjCncxE1DBckhGLjGrR5MCm8h1rbzWaiCKIm KNO3e5jxNJrvucLhUW0jjs4ibTb0u0dyekEsOOBx VEWnzVTMYLToT9EgmAsfCo4soDl6vZceBthjBGJ6 Uei2OW3mwz01yxq3sMjkCCZyokfsDmW7LTczQUTv baqsYPn4NMjxHAGjwEnpUVasSLRfoashJEjoTEEc hSsuBOvbOFKxWplbLWooXJCwVAR8WTcom878ATL7 BLfgw1der7sevXFyEcy1KCDxMcQlQbroBNfkf4Na i4syNUQvkw3sCQR9xKWlsUglt9V7yVBgJWOesZKh yiBoRZJmzz10hDJsmJFxhYZicm7ussIgmITinOEc MBP8oBXyrgHxRHIpsIFcPNGsIX2nsSInMCTcwL8s rcjdZLNaSyJfbrutKKUyzSndkfCaWn2inZtgYSC7 ZUteD2pxgD3rRxH2IEowV0oayE1uMZu5RCrdvTF7 LYIfwO4uVG2dbhecv1ngRkWpHE9iglbcf0nvXvZi BH3kaed9g0rlOpMkUE6plmclu2rcOmMrWSuyXTEi fqkhDQXdx8SasqdmQANsz1NkX4HfpEhqW53ipDxf B60pNAAtzDhjdQ4psBjteI7yFwCgWxDjEPkzqJal bGFpblxmMFxmczIwXHBsYWluXGYxXGZzMjAgUGVy Wd2itVVuLrwzZRLxiYWznC== SPECIAL STUDIES (test code = 3376) s0eguLHiNWGij8ifFUOjnDEhAiPsCfHs ZnRuYmpc mHOoYLmmqoEkLLcnu6JeG5MlIyHfCWmnbtRhSMZw EkoxlvfoYAYrTNU0ewTaPFQoMYzxYQWnVTxgGk1o iJSvbQomLqCgOXAdt0rdgsWDytutlMt8j3qjDICm HuV5qMTwQZcqP2gggjLebGCpN6EobJXiyLg6e3up FjGsCsK7bHRcLNcbR0cmolDxcRNzVTBvWHs0lV89 QLKkvF8abWTjEAplglPxBiF0QArwHUMiKnC4ZOVk yEKsFKBdB0baTFPzYCkmPOPrWBniuPGpNDM1lBpv g7R8zDRgiYSzyLpzMnXnMoGbUkLXt3DkATl3xBuv Y6QgGSVxHzD6yYUiEOZdEOuhGZWcUKOhhqT5bMkk dhSng88icAGwGYTqAWDuJbOltIasMPAkXPAAu5Qx sXmhIYR3kIe2hCfjTtopHUY3Ofq5MA7nva81klr1 yCdhZPNjaqxrAsQ2UDfhXPUdorihKQa9RHnkWHVx aEG5IEHpnMIxK8KlVCGmFJ0xxib4NFW4QLlyHGBq YtN9JVWgvLGmRSSqiWgyIMwzi197CDI4XtAiXC4g Z3Vpe5Q8rR3kqYFqKFWcjSOdQlLyUIJigl4wnYKp GBswy9AoFBR1knE4nMVqdQItOFLzYV08Nrgcg7Zi Vdfkm9CrR24vhGL4SEibg3zdBS8vQzZ5exAhKWwj d3fmyK6wIdT0QAbgYX4sPR7hSTNlsV1uwpfbYANj EkFpyjfkMOZqcKaxkdNbTy8xgAgrZPD1QDgmN0tt rF2mRnT9JSjwL8hfzQ7oTCg7VIqrvHB2LORtgE7m QU5uxfxvj7vlKNwrRBayOBHsgzR0rjV6NKNsvLWq F2BqtL1aIQGhKQ1buunsf6nqKGT7RLibBYOyQTO7 JpSfSABdx8Gsmnj1RhQcu8YdbRVrUUpwJ07ea779 MWWlzmXuJ0efxGWiwmwvwASgxtpvVPsjzoW4KVGf XHBsYWluXGYxXGZzMjJcbGFuZzEwMzNcaGljaFxm GAziWmSjJMDdNWjaX3aoLmCpS2JaDXBzSsDdKYkq TEagjJMekWSfkDM6qB7oOV4jVYAnwABkB1PeEBFv rsOzkEEhCQN4kRXwhXVnVB1aLGaavWUaq9jdm7Cf V9anjKobvRU3TZ3nAADiMFZaYRlxz9OjzS9jYfdx iHMsdpidQAwdglRtBEfcnrxvYGJgRYpsH7ijNbXv MKXakPtvHKonc1UrJXJxWFTzGugxyvUxYZm8lsCg YBSsppxyTNMyjCmviB3dDiJyIpLgJlabYL8hHNSy F8xnyZAwDWVtWXSaA6wvVsPvmB2kcCqnRRmsIeWs JnMbKwDXk729fm9dZTEcnNObkkQBmZUrlG6qPQmf IMxgIRcbeKFpGIurn2oiBKEaj1e8xKPrNMOwsvKl v2roLYqtmwVePPWtaXJwcQMuJJFcu35tPVnsuVhk wHxqCVIqz1JhoLcwg5WaXnWwQEbjr0OlW28xzPGa fNLshHjwLAWyehIgOAVak18qn9vbUZIpIaZ3yMXu eAW2pQAbiCXbt3XuyNwxBIXys8iiNHVvbe8mjzcg nCMrj6HtbX7zndgxLRzncNGvkhXbUONrb3l3dPWv KAJyFCIeYMlprKy8KMFfv624sc9ylxA2yMNqUQK4 YWlsYWJsZSBhcmUgZXZhbHVhdGVkXHBsYWluXGYx XGZzMjJcFuZzEwMzNcaGljaFxmMVxkYmNoXGYx OOdjN4rrYtRaC1LzOWGxCcRkqLQoA3vsdBOcNHZo YWluXGYxXGZzMjJcbGFuZzEwMzNcaGljaFxmMVxk GcZdWLMwLTsmZ4biGnWpP0HvJYMwDkEaQXwukDWa yommPUtyneBvWOpfginyWEOzDAvjL9kwYgUaETLn hXctAIjwu9HzNTIfWVGeKopbvrSaZSi0zyTcKASi acbxiSZwafdcKSwzhcUaAOqbkiwlVWVaRSbcA3cn [file] NwuvLAI2cB== [id number] 14:29:00Surgical Pathology Report Case: [id number] Authorizing Provider: John Skelton MD Collected: 04/23/2020 10:24 AM Ordering Location: [address] Received: 04/25/2020 09:36 AM Service Pathologist: Mendoza Velasco MD Specimen: Bi opsy, Gastric, random gastric R/O H. Pylori REASON FOR ADDENDUM: TO REPORT IMMUNOSTAIN ON PART ARESULT:IMMUNOSTAIN FOR H.PYLORI: NEGATIVE.Addendum electronically signed by Mendoza Velasco MD on 04/26/2020 at 2:29 PMA. STOMACH, RANDOM BIOPSIES: - ANTRAL MUCOSA WITH ACTIVE CHRONIC GASTRITIS - OXYNTIC MUCOSA WITH NO SIGNIFICANT DIAGNOSTIC ABNORMALITY - NEGATIVE FOR INTESTINAL METAPLASIA, DYSPLASIA, MALIGNANCY Signing Pathologist Direct Phone Line: [phone] signed by Mendoza Velasco MD on 04/25/2020 at 5:01 PMWarthin-starry stain is equivocal. Immunostain for H.pylori is ordered and will be reported in an addendum.[id number] hemorrhage, unspecified gastrointestinal hemorrhage type [K92.2]Gastric biopsyReceived in formalin labeled with the patient's name, accession number and "gastric biopsy" are 3 henderson-pink tissue fragments measuring up to 0.2 cm in greatest dimension which are filtered and submitted in toto in A1.SHIRA Riggs (ASCP)cmPerformed.The interpretation of this case included the use of immunohistochemistry or special stains.Control Slides Examined: In-house known positive controls were evaluated along with the test tissue. These control slides run alongside of the patients sample show appropriate staining. Internal positive and negative controls when available are evaluated Immunohistochemistry technical testing was performed at [facility] where it was developed and its performance characteristics were determined. It has not been cleared or approved by the U.S. Food and Drug Administration. The FDA has determined that such clearance or approval is not necessary. The test is used for clinical purposes. It should not be regarded as investigational or for research. This laboratory is certified under the Clinical Laboratory Improvement Amendments of 1988 (CLIA- 88) as qualified to perform high complexity clinical laboratory testing.Prepare Leuko-Red [id number] 23:54:00 Test Item Value Reference Range Interpretation Comments CROSSMATCH (test code = 2264) COMPATIBLE Unit ABO (test code = B Pos [id number]) UNIT NUMBER (test code = [id number] 934-0) Status (test code = 7632199) TX_TIMEINCHART Blood Bank Product (test code RED BLOOD CELLS = 2263) PRODUCT CODE (test code = F3265V81 933-2) [facility] [id number] 08:44:00 Test Item Value Reference Range Interpretation Comments Hemoglobin (test code = 7.9 13.7- 17.5 GM/DL L 786-4) Hematocrit (test code = 24.2 % 40.1-51 L 4544-3) WU (test code = WU) Dry Cleaning Machine Operator Helper ID - [id number] Lab Interpretation (test Abnormal code = 19812-0) [facility] HospitalHEMOGLOBIN AND [id number] 08:44:00 Test Item Value Reference Range Interpretation Comments HEMOGLOBIN (BEAKER) (test code = 7.9 GM/DL 13.7-17.5 L 410) HEMATOCRIT (BEAKER) (test code = 24.2 % 40.1-51.0 L 411) Dry Cleaning Machine Operator Helper ID - [id number] Metabolic [id number] 01:48:00 Test Item Value Reference Range Interpretation Comments Sodium (test code = 140 meq/L 285-151 2241-2) Potassium (test code = 3.6 meq/L 3.5-5.1 2823-3) Chloride (test code = 113 meq/L 98-107 H 2075-0) CO2 (test code = 23 meq/L 22-29 8-9) BUN (test code = 42 mg/dL 7-21 H 3094-0) Creatinine (test code 1.20 mg/dL 0.57-1.25 = 2160-0) Glucose (test code = 84 mg/dL 70-105 2345-7) Calcium (test code = 7.8 mg/dL 8.4-10.2 L 07822-8) EGFR (test code = 59 mL/min/1.73 [place] [address]-1) NOT ACCURATE CREATININE CLEARANCE IN PREDICTING GLOMERULAR FILTRATION RATE . ESTIMATED GFR I S NOT APPLICABLE FOR DIALYSIS PATIENTS. WU (test code = WU) Dry Cleaning Machine Operator Helper ID - BREANNA L Lab Interpretation Abnormal (test code = 02904-8) [facility] METABOLIC [id number] 01:48:00 Test Item Value Reference Range Interpretation Comments SODIUM (BEAKER) 140 meq/L 136-145 (test code = 381) POTASSIUM (BEAKER) 3.6 meq/L 3.5-5.1 (test code = 379) CHLORIDE (BEAKER) 113 meq/L 98-107 H (test code = 382) CO2 (BEAKER) (test 23 meq/L 22-29 code = 355) BLOOD UREA NITROGEN 42 mg/dL 7-21 H (BEAKER) (test code = 354) CREATININE (BEAKER) 1.20 mg/dL 0.57-1.25 (test code = 358) GLUCOSE RANDOM 84 mg/dL 70-105 (BEAKER) (test code = 652) CALCIUM (BEAKER) 7.8 mg/dL 8.4-10.2 L (test code = 697) EGFR (BEAKER) (test 59 mL/min/1.73 ESTIMA SHARON GFR IS code = 1092) sq m NOT ACCURATE CREATININE CLEARANCE IN PREDICTING GLOMERULAR FILTRATION RATE . ESTIMATED GFR I S NOT APPLICABLE FOR DIALYSIS PATIEN TS. Dry Cleaning Machine Operator Helper ID - PIAYA LProthrombin time/[id number] 01:39:00 Test Item Value Reference Range Interpretation Comments Protime (test code = 17.0 11.9- 14.2 H 5902-2) seconds INR (test code = 1.4 <=5.9 6301-6) WU (test code = WU) Effective 04/01/2019: PT Reference Range ChangeNew: 11.9-14.2 Previous: 11.7-14.7 RECOMMENDED COUMADIN/WARFARIN INR THERAPY RANGESSTANDARD DOSE: 2.0-3.0 Includes: PROPHYLAXIS for venous thrombosis, systemic embolization; TREATMENT for venous thrombosis and/or pulmonary embolus.HIGH RISK: Target INR is 2.5-3.5 for patients wiht mechanical heart valves. Lab Interpretation Abnormal (test code = 22556-4) [facility]/[id number] 01:39:00 Test Item Value Reference Range Interpretation Comments PROTIME (BEAKER) (test code = 17.0 seconds 11.9-14.2 H 759) INR (BEAKER) (test code = 370) 1.4 <=5.9 Effective 04/01/2019: PT Reference Range ChangeNew: 11.9-14.2 Previous: 11.7- 14.7RECOMMENDED COUMADIN/WARFARIN INR THERAPY RANGESSTANDARD DOSE: 2.0-3.0 Includes: PROPHYLAXIS for venous thrombosis, systemic embolization; TREATMENT for venous thrombosis and/or pulmonary embolus.HIGH RISK: Target INR is2.5-3.5 for patients wiht mechanical heart valves.CBC with platelet count + automated [id number] 01:29:00 Test Item Value Reference Range Interpretation Comments WBC (test code = 6690-2) 7.0 3.5- 10.5 K/L RBC (test code = 789-8) 2.30 4.63- 6.08 M/L L MCHC (test code = 786-4) 33.6 32.3- 36.5 GM/DL L Hematocrit (test code = 22.0 % 40.1-51 L 4544-3) MCV (test code = 787-2) 95.7 fL 79-92.2 H Disc ordant MCV results compare d to previous result s; clinical correl ation required. MCH (test code = 785-6) 32.2 pg 25.7-32.2 RDW (test code = 788-0) 14.6 % 11.6-14.4 H Platelets (test code = 113 150- 450 K/CU MM L 777-3) MPV (test code = 9.8 fL 9.4-12.4 49387-0) nRBC (test code = 413) 0 0- 0 /100 WBC % Neutros (test code = 41 % 429) % Lymphs (test code = 43 % 430) % Monos (test code = 12 % 431) % Eos (test code = 432) 4 % % Baso (test code = 437) 1 % # Neutros (test code = 2.82 1.78- 5.38 K/L 670) # Lymphs (test code = 2.99 1.32- 3.57 K/L 414) # Monos (test code = 0.80 0.30- 0.82 K/L 415) # Eos (test code = 416) 0.27 0.04- 0.54 K/L # Baso (test code = 417) 0.05 0.01- 0.08 K/L Immature 0 % 0-1 Granulocytes-Relative (test code = 2801) Lab Interpretation (test Abnormal code = 93320-6) [facility] W/PLT COUNT & AUTO [id number] 01:29:00 Test Item Value Reference Range Interpretation Comments WHITE BLOOD CELL COUNT 7.0 K/ L 3.5-10.5 (BEAKER) (test code = 775) RED BLOOD CELL COUNT 2.30 M/ L 4.63-6.08 L (BEAKER) (test code = 761) HEMOGLOBIN (BEAKER) 7.4 GM/DL 13.7-17.5 L (test code = 410) HEMATOCRIT (BEAKER) 22.0 % 40.1-51.0 L (test code = 411) MEAN CORPUSCULAR 95.7 fL 79.0-92.2 H Discordant MCV VOLUME (BEAKER) (test result s compared to code = 753) previous result s; clinical correl ation required. MEAN CORPUSCULAR 32.2 pg 25.7-32.2 HEMOGLOBIN (BEAKER) (test code = 751) MEAN CORPUSCULAR 33.6 GM/DL 32.3-36.5 HEMOGLOBIN CONC (BEAKER) (test code = 752) RED CELL DISTRIBUTION 14.6 % 11.6-14.4 H WIDTH (BEAKER) (test code = 412) PLATELET COUNT 113 K/CU MM 150-450 L (BEAKER) (test code = 756) MEAN PLATELET VOLUME 9.8 fL 9.4-12.4 (BEAKER) (test code = 754) NUCLEATED RED BLOOD 0 /100 WBC 0-0 CELLS (BEAKER) (test code = 413) NEUTROPHILS RELATIVE 41 % PERCENT (BEAKER) (test code = 429) LYMPHOCYTES RELATIVE 43 % PERCENT (BEAKER) (test code = 430) MONOCYTES RELATIVE 12 % PERCENT (BEAKER) (test code = 431) EOSINOPHILS RELATIVE 4 % PERCENT (BEAKER) (test code = 432) BASOPHILS RELATIVE 1 % PERCENT (BEAKER) (test code = 437) NEUTROPHILS ABSOLUTE 2.82 K/ L 1.78-5.38 COUNT (BEAKER) (test code = 670) LYMPHOCYTES ABSOLUTE 2.99 K/ L 1.32-3.57 COUNT (BEAKER) (test code = 414) MONOCYTES ABSOLUTE 0.80 K/ L 0.30-0.82 COUNT (BEAKER) (test code = 415) EOSINOPHILS ABSOLUTE 0.27 K/ L 0.04-0.54 COUNT (BEAKER) (test code = 416) BASOPHILS ABSOLUTE 0.05 K/ L 0.01-0.08 COUNT (BEAKER) (test code = 417) IMMATURE 0 % 0-1 GRANULOCYTES-RELATIVE PERCENT (BEAKER) (test code = 2801) Lipid [id number] 01:23:00 Test Item Value Reference Range Interpretation Comments Triglycerides (test 63 mg/dL code = 2571-8) Cholesterol (test code 81 mg/dL = 2093-3) HDL (test code = 27 mg/dL 5-9) LDL Calculated (test 41 mg/dL code = 92635-4) WU (test code = WU) Triglyceride Reference Range: Low Risk <150 Borderline 150-199 High Risk 200-499 Very High Risk >=500 Cholesterol Reference Range: Low Risk <200 Borderline 200-239 High Risk >240 HDL Cholesterol Reference Range: Low Risk >=60 High Risk <40 LDL Cholesterol Reference Range: Optimal <100 Near Optimal 100-129 Borderline 130-159 High 160-189 Very High >=190 Dry Cleaning Machine Operator Helper ID - BREANNA Mercado [facility]esium[facility] 01:23:00 Test Item Value Reference Range Interpretation Comments Magnesium (test code = 1.9 mg/dL 1.6-2.6 19103-5) WU (test code = WU) Dry Cleaning Machine Operator Helper ID - BREANNA Mercado Lab Interpretation (test Normal code = 53847-4) [facility] 01:23:00 Test Item Value Reference Range Interpretation Comments Phosphorus (test code = 3.2 mg/dL 2.3-4.7 2777-1) WU (test code = WU) Dry Cleaning Machine Operator Helper ID Janeen CARLOS L Lab Interpretation (test Normal code = 39889-6) [facility]2020-[facility]-21 01:23:00 Test Item Value Reference Range Interpretation Comments PHOSPHORUS (BEAKER) (test code = 3.2 mg/dL 2.3-4.7 604) Dry Cleaning Machine Operator Helper ID - BREANNA [id number] 01:23:00 Test Item Value Reference Range Interpretation Comments MAGNESIUM (BEAKER) (test code = 1.9 mg/dL 1.6-2.6 627) Dry Cleaning Machine Operator Helper ID - BREANNA LLIPID [id number] 01:23:00 Test Item Value Reference Range Interpretation Comments TRIGLYCERIDES (BEAKER) (test code = 63 mg/dL 540) CHOLESTEROL (BEAKER) (test code = 81 mg/dL 631) HDL CHOLESTEROL (BEAKER) (test code 27 mg/dL = 976) LDL CHOLESTEROL CALCULATED (BEAKER) 41 mg/dL (test code = 633) Triglyceride Reference Range: Low Risk <150 Borderline 150-199 High Risk 200-499 Very High Risk >=500Cholesterol Reference Range: Low Risk <200 Borderline 200-239 High Risk >240HDL Cholesterol Reference Range: Low Risk >=60 High Risk <40LDL Cholesterol Reference Range: Optimal <100 Near Optimal 100-129 Borderline 130-159 High 160-189 Very High >=190 Dry Cleaning Machine Operator Helper ID Janeen CARLOSLCBC W/PLT COUNT & AUTO [id number] 16:42:00 Test Item Value Reference Range Interpretation Comments WHITE BLOOD CELL COUNT (BEAKER) 9.3 K/ L 3.5-10.5 (test code = 775) RED BLOOD CELL COUNT (BEAKER) 1.93 M/ L 4.63-6.08 L (test code = 761) HEMOGLOBIN (BEAKER) (test code = 6.3 GM/DL 13.7-17.5 L 410) HEMATOCRIT (BEAKER) (test code = 19.3 % 40.1-51.0 L 411) MEAN CORPUSCULAR VOLUME (BEAKER) 100.0 fL 79.0-92.2 H (test code = 753) MEAN CORPUSCULAR HEMOGLOBIN 32.6 pg 25.7-32.2 H (BEAKER) (test code = 751) MEAN CORPUSCULAR HEMOGLOBIN CONC 32.6 GM/DL 32.3-36.5 (BEAKER) (test code = 752) RED CELL DISTRIBUTION WIDTH 13.2 % 11.6-14.4 (BEAKER) (test code = 412) PLATELET COUNT (BEAKER) (test 137 K/CU MM 150-450 L code = 756) MEAN PLATELET VOLUME (BEAKER) 10.3 fL 9.4-12.4 (test code = 754) NUCLEATED RED BLOOD CELLS 0 /100 WBC 0-0 (BEAKER) (test code = 413) NEUTROPHILS RELATIVE PERCENT 56 % (BEAKER) (test code = 429) LYMPHOCYTES RELATIVE PERCENT 31 % (BEAKER) (test code = 430) MONOCYTES RELATIVE PERCENT 11 % (BEAKER) (test code = 431) EOSINOPHILS RELATIVE PERCENT 2 % (BEAKER) (test code = 432) BASOPHILS RELATIVE PERCENT 1 % (BEAKER) (test code = 437) NEUTROPHILS ABSOLUTE COUNT 5.18 K/ L 1.78-5.38 (BEAKER) (test code = 670) LYMPHOCYTES ABSOLUTE COUNT 2.86 K/ L 1.32-3.57 (BEAKER) (test code = 414) MONOCYTES ABSOLUTE COUNT (BEAKER) 1.03 K/ L 0.30-0.82 H (test code = 415) EOSINOPHILS ABSOLUTE COUNT 0.14 K/ L 0.04-0.54 (BEAKER) (test code = 416) BASOPHILS ABSOLUTE COUNT (BEAKER) 0.05 K/ L 0.01-0.08 (test code = 417) IMMATURE GRANULOCYTES-RELATIVE 0 % 0-1 PERCENT (BEAKER) (test code = 2801) CBC W/PLT COUNT & AUTO [id number] 09:38:00 Test Item Value Reference Range Interpretation Comments WHITE BLOOD CELL COUNT (BEAKER) 12.4 K/ L 3.5-10.5 H (test code = 775) RED BLOOD CELL COUNT (BEAKER) 2.24 M/ L 4.63-6.08 L (test code = 761) HEMOGLOBIN (BEAKER) (test code = 7.2 GM/DL 13.7-17.5 L 410) HEMATOCRIT (BEAKER) (test code = 22.5 % 40.1-51.0 L 411) MEAN CORPUSCULAR VOLUME (BEAKER) 100.4 fL 79.0-92.2 H (test code = 753) MEAN CORPUSCULAR HEMOGLOBIN 32.1 pg 25.7-32.2 (BEAKER) (test code = 751) MEAN CORPUSCULAR HEMOGLOBIN CONC 32.0 GM/DL 32.3-36.5 L (BEAKER) (test code = 752) RED CELL DISTRIBUTION WIDTH 13.1 % 11.6-14.4 (BEAKER) (test code = 412) PLATELET COUNT (BEAKER) (test 162 K/CU MM 150-450 code = 756) MEAN PLATELET VOLUME (BEAKER) 10.2 fL 9.4-12.4 (test code = 754) NUCLEATED RED BLOOD CELLS 0 /100 WBC 0-0 (BEAKER) (test code = 413) NEUTROPHILS RELATIVE PERCENT 56 % (BEAKER) (test code = 429) LYMPHOCYTES RELATIVE PERCENT 31 % (BEAKER) (test code = 430) MONOCYTES RELATIVE PERCENT 11 % (BEAKER) (test code = 431) EOSINOPHILS RELATIVE PERCENT 1 % (BEAKER) (test code = 432) BASOPHILS RELATIVE PERCENT 1 % (BEAKER) (test code = 437) NEUTROPHILS ABSOLUTE COUNT 6.88 K/ L 1.78-5.38 H (BEAKER) (test code = 670) LYMPHOCYTES ABSOLUTE COUNT 3.81 K/ L 1.32-3.57 H (BEAKER) (test code = 414) MONOCYTES ABSOLUTE COUNT (BEAKER) 1.39 K/ L 0.30-0.82 H (test code = 415) EOSINOPHILS ABSOLUTE COUNT 0.16 K/ L 0.04-0.54 (BEAKER) (test code = 416) BASOPHILS ABSOLUTE COUNT (BEAKER) 0.07 K/ L 0.01-0.08 (test code = 417) IMMATURE GRANULOCYTES-RELATIVE 0 % 0-1 PERCENT (BEAKER) (test code = 2801) Comprehensive metabolic [id number] 05:37:00 Test Item Value Reference Range Interpretation Comments Protein, Total (test 5.1 6.0- 8.3 gm/dL L code = 2885-2) Albumin (test code = 3.0 g/dL 3.5-5 L 75806-6) Alkaline Phosphatase 34 U/L 40-150 L (test code = 6768-6) Total Bilirubin (test 0.6 mg/dL 0.2-1.2 code = 1974-2) Sodium (test code = 140 meq/L 878-108 4722-2) Potassium (test code = 3.8 meq/L 3.5-5.1 2823-3) Chloride (test code = 113 meq/L 98-107 H 2075-0) CO2 (test code = 20 meq/L 22-29 L 2028-9) BUN (test code = 71 mg/dL 7-21 H 3094-0) Creatinine (test code 1.53 mg/dL 0.57-1.25 H = 2160-0) Glucose (test code = 106 mg/dL 70-105 H 2345-7) Calcium (test code = 8.0 mg/dL 8.4-10.2 L 44361-1) AST (test code = 39 U/L 5-34 H 1920-8) ALT (test code = 26 U/L 6-55 1742-6) EGFR (test code = 44 mL/min/1.73 sq [place] [address]-2) NOT ACCURATE CREATININE CLEARANCE IN PREDICTING GLOMERULAR FILTRATION RATE . ESTIMATED GFR I S NOT APPLICABLE FOR DIALYSIS PATIENTS. WU (test code = WU) Dry Cleaning Machine Operator Helper ID - DB Lab Interpretation Abnormal (test code = 39208-3) [facility] 05:37:00 Test Item Value Reference Range Interpretation Comments PHOSPHORUS (BEAKER) (test code = 4.3 mg/dL 2.3-4.7 604) Dry Cleaning Machine Operator Helper ID - [id number] 05:37:00 Test Item Value Reference Range Interpretation Comments MAGNESIUM (BEAKER) (test code = 2.0 mg/dL 1.6-2.6 627) Dry Cleaning Machine Operator Helper ID - DBCOMPREHENSIVE METABOLIC [id number] 05:37:00 Test Item Value Reference Range Interpretation Comments TOTAL PROTEIN 5.1 gm/dL 6.0-8.3 L (BEAKER) (test code = 770) ALBUMIN (BEAKER) 3.0 g/dL 3.5-5.0 L (test code = 1145) ALKALINE PHOSPHATASE 34 U/L 40-150 L (BEAKER) (test code = 346) BILIRUBIN TOTAL 0.6 mg/dL 0.2-1.2 (BEAKER) (test code = 377) SODIUM (BEAKER) (test 140 meq/L 136-145 code = 381) POTASSIUM (BEAKER) 3.8 meq/L 3.5-5.1 (test code = 379) CHLORIDE (BEAKER) 113 meq/L 98-107 H (test code = 382) CO2 (BEAKER) (test 20 meq/L 22-29 L code = 355) BLOOD UREA NITROGEN 71 mg/dL 7-21 H (BEAKER) (test code = 354) CREATININE (BEAKER) 1.53 mg/dL 0.57-1.25 H (test code = 358) GLUCOSE RANDOM 106 mg/dL 70-105 H (BEAKER) (test code = 652) CALCIUM (BEAKER) 8.0 mg/dL 8.4-10.2 L (test code = 697) AST (SGOT) (BEAKER) 39 U/L 5-34 H (test code = 353) ALT (SGPT) (BEAKER) 26 U/L 6-55 (test code = 347) EGFR (BEAKER) (test 44 mL/min/1.73 ESTIMA SHARON GFR IS code = 1092) sq m NOT ACCURATE CREATININE CLEARANCE IN PREDICTING GLOMERULAR FILTRATION RATE . ESTIMATED GFR I S NOT APPLICABLE FOR DIALYSIS PATIEN TS. Dry Cleaning Machine Operator Helper ID - DBLIPID [id number] 05:37:00 Test Item Value Reference Range Interpretation Comments TRIGLYCERIDES (BEAKER) (test code = 80 mg/dL 540) CHOLESTEROL (BEAKER) (test code = 95 mg/dL 631) HDL CHOLESTEROL (BEAKER) (test code 26 mg/dL = 976) LDL CHOLESTEROL CALCULATED (BEAKER) 53 mg/dL (test code = 633) Triglyceride Reference Range: Low Risk <150 Borderline 150-199 High Risk 200-499 Very High Risk >=500Cholesterol Reference Range: Low Risk <200 Borderline 200-239 High Risk >240HDL Cholesterol Reference Range: Low Risk >=60 High Risk <40LDL Cholesterol Reference Range: Optimal <100 Near Optimal 100-129 Borderline 130-159 High 160-189 Very High >=190 Dry Cleaning Machine Operator Helper ID - DBPROTHROMBIN TIME/[id number] 05:09:00 Test Item Value Reference Range Interpretation Comments PROTIME (BEAKER) (test code = 16.3 seconds 11.9-14.2 H 759) INR (BEAKER) (test code = 370) 1.4 <=5.9 Effective 04/01/2019: PT Reference Range ChangeNew: 11.9-14.2 Previous: 11.7- 14.7RECOMMENDED COUMADIN/WARFARIN INR THERAPY RANGESSTANDARD DOSE: 2.0-3.0 Includes: PROPHYLAXIS for venous thrombosis, systemic embolization; TREATMENT for venous thrombosis and/or pulmonary embolus.HIGH RISK: Target INR is2.5-3.5 for patients wiht mechanical heart valves.ABORH, [id number] 05:08:00 Test Item Value Reference Range Interpretation Comments Rh Factor (test code = 2589) POS ABO Grouping (test code = 2588) B [facility] [id number] 04:30:00 Test Item Value Reference Range Interpretation Comments % Neutros (test code = 80 % 2816) % Lymphs (test code = 12 % 2817) % Monos (test code = 2818) 8 % # Neutros (test code = 10.00 K/ul 1.78-5.38 H 2830) # Lymphs (test code = 1.50 K/ul 1.32-3.57 2831) # Monos (test code = 2832) 1.00 K/uL 0.3-0.82 H Total Counted (test code = 100 1351) WBC Morphology (test code Normal = 487) Platelet Morphology (test Normal code = 486) Polychromasia (test code = 1+ few 478) Ovalocytes (test code = 2+ moderate 477) Artifact (test code = Present 3432) Helmet Cells (test code = 1+ few 3434) Platelet Conc (test code = Adequate 3438) WU (test code = WU) Dry Cleaning Machine Operator Helper ID - Miguel Portillo comments: Slide comments: Lab Interpretation (test Abnormal code = 83770-3) [facility] W/PLT COUNT & AUTO [id number] 04:30:00 Test Item Value Reference Range Interpretation Comments WHITE BLOOD CELL COUNT (BEAKER) 12.5 K/ L 3.5-10.5 H (test code = 775) RED BLOOD CELL COUNT (BEAKER) 2.36 M/ L 4.63-6.08 L (test code = 761) HEMOGLOBIN (BEAKER) (test code = 7.8 GM/DL 13.7-17.5 L 410) HEMATOCRIT (BEAKER) (test code = 23.0 % 40.1-51.0 L 411) MEAN CORPUSCULAR VOLUME (BEAKER) 97.5 fL 79.0-92.2 H (test code = 753) MEAN CORPUSCULAR HEMOGLOBIN 33.1 pg 25.7-32.2 H (BEAKER) (test code = 751) MEAN CORPUSCULAR HEMOGLOBIN CONC 33.9 GM/DL 32.3-36.5 (BEAKER) (test code = 752) RED CELL DISTRIBUTION WIDTH 12.8 % 11.6-14.4 (BEAKER) (test code = 412) PLATELET COUNT (BEAKER) (test 162 K/CU MM 150-450 code = 756) MEAN PLATELET VOLUME (BEAKER) 10.3 fL 9.4-12.4 (test code = 754) NUCLEATED RED BLOOD CELLS 0 /100 WBC 0-0 (BEAKER) (test code = 413) (CELLAVISION MANUAL DIFF)2020-04-23 04:30:00 Test Item Value Reference Range Interpretation Comments NEUTROPHILS - REL 80 % (CELLAVISION)(BEAKER) (test code = 2816) LYMPHOCYTES - REL 12 % (CELLAVISION)(BEAKER) (test code = 2817) MONOCYTES - REL 8 % (CELLAVISION)(BEAKER) (test code = 2818) NEUTROPHILS - ABS 10.00 K/ul 1.78-5.38 H (CELLAVISION)(BEAKER) (test code = 2830) LYMPHOCYTES - ABS 1.50 K/ul 1.32-3.57 (CELLAVISION)(BEAKER) (test code = 2831) MONOCYTES - ABS 1.00 K/uL 0.30-0.82 H (CELLAVISION)(BEAKER) (test code = 2832) TOTAL COUNTED (BEAKER) (test code 100 = 1351) WBC MORPHOLOGY (BEAKER) (test Normal code = 487) PLT MORPHOLOGY (BEAKER) (test Normal code = 486) POLYCHROMATOPHILLIC RBCS(BEAKER) 1+ few (test code = 478) OVALOCYTES (BEAKER) (test code = 2+ moderate 477) ARTIFACT (CELLAVISION)(BEAKER) Present (test code = 3432) HELMET CELLS 1+ few (CELLAVISION)(BEAKER) (test code = 3434) PLATELET CONCENTRATION Adequate (CELLAVISION)(BEAKER) (test code = 3438) Dry Cleaning Machine Operator Helper ID - Miguel Portillo comments: Slide comments:Type and screen, [id number] 02:37:00 Test Item Value Reference Range Interpretation Comments ABO/RH AUTOMATED (BEAKER) (test B POSITIVE code = 2260) Ab Scrn (test code = 890-4) NEGATIVE [facility]As[facility] ONLY[facility]2020-04-23 01:23:00 Test Item Value Reference Range Interpretation Comments SARS-COV2/RT-PCR Not Detected Not Detected, (test code = Negative 77523-2) SARS-COV-2 [facility] PERFORMING LAB (test code = 32892-5) WU (test code = Negative results do not WU) preclude SARS-CoV-2 infection and should not be used as [...] of the Act. Fact Sheet for Healthcare Providers:https://www.[employer]/Documents/Xper t%20Xpress%20SARS%20CoV- 2/Fact%20Sheets/302-3802 %82IDKX-BVX-4%20HEALTHCA RE%20PROVIDERS%20FACT%20 SHEET.pdf Fact Sheet for Healthcare Patients:https://www.[employer]/Documents/Xpert %20Xpress%20SARS%20CoV-2 /Fact%20Sheets/302-3801% 06YGOB-JGT-8%20PATIENT%2 0FACT%20SHEET.pdf Performing Laboratory:[facility] [place] [address] [facility] ([facility])2020-04-23 01:23:00 Test Item Value Reference Range Interpretation Comments SARS-COV2/RT-PCR (test Not Detected Not Detected, Negative code = 4558873) SARS-COV-[address] [facility] (test code = 6463205) Negative results do not preclude SARS-CoV-2 infection and should not be used as the sole basis for patient management decisions. Negative results must be combined with clinical observations, patient history, and epidemiological information. A false negative result may occur if a specimen is improperly collected, transported or handled.The limit of detection for this assay is 250 copies/mL.This SARS CoV-2 test is a rapid, real-time RT-PCR test intended for the qualitative detection of nucleic acid from SARS-CoV-2 in a nasopharyngeal swab specimen collected from individuals suspected of COVID-19 by their healthcare provider.This test has not been Food and Drug [...] is revoked under Section 564(g) of the Act.Fact Sheet for Healthcare Pro viders:https://www.[employer]/Documents/Xpert%20Xpress%20SARS%20CoV-2/Fact%20Sh eets/302-3802%26JEHX-MOT-8%20HEALTHCARE%20PROVIDERS%20FACT%20SHEET.pdfFact Sheet for Healthcare Patients:https://www.[employer]/Documents/Xpert%20Xpress%20SARS%20CoV-2/Fact%20Sheets/302-8614%20SARS-COV -2%20PATIENT%20FACT%20SHEET.pdfPerforming Laboratory:[facility] [place] [address]
[2020-05-03] MEDS ORDERED: POTASSIUM CL SA 10 MEQ TAB PO ONE (16:41)
[2020-05-03] MEDS: FUROSEMIDE 20 MG/ 2ML VIAL IV SCH (17:00)
[2020-05-03 22:50] VITALS: BMI 24.0
[2020-05-04 05:38] LABS: Absolute Lymphocytes (CBC) 1.3 K/uL (0.7-4.9); Basophils % 1.1 % (0-1.3); Hematocrit 23.6 % (39.6-49.0); Lymphocytes % 17.7 % (15.3-44.8); MPV 8.2 fL (7.6-11.3); RBC Red Blood Cell Count 2.54 M/uL (4.33-5.43)
[2020-05-04 05:57] LABS: Potassium 3.6 mmol/L (3.5-5.1)
--- NOTE | 2020-05-04 07:17 | EKG ---
Test Date: 2020-05-03 Test Time: 14:00:18 Line Director: JHONY MEASUREMENT RESULTS: Intervals: Rate: 65 KS: 138 QRSD: 142 QT: 496 QTc: 515 Purcell: P: 74 KS: 138 QRS: -67 T: 77 INTERPRETIVE STATEMENTS: Sinus rhythm with premature supraventricular complexes Right bundle branch block Left anterior fascicular block Bifascicular block Abnormal ECG Compared to ECG 10/02/2004 05:47:00 Atrial premature complex(es) now present Bifascicular block still present Electronically Signed On 05-04-20 07:15:45 CDT by Margarito Schumacher
[2020-05-04] MEDS: FUROSEMIDE 20 MG/ 2ML VIAL IV SCH ×2 (08:28→16:01)
[2020-05-04] MEDS: POTASSIUM 25 MEQ EFFERV TAB PO SCH (08:28)
[2020-05-04] MEDS ORDERED: ATORVASTATIN 10 MG TAB PO SCH (21:00)
[2020-05-04] MEDS ORDERED: TRAVOPROST EACH EYE SCH (21:00)
--- NOTE | 2020-05-04 21:07 | P.HP ---
Certification for Inpatient Patient admitted to: Observation With expected LOS: <2 Midnights Practitioner: I am a practitioner with admitting privileges, knowledge of patient current condition, hospital course, and medical plan of care. 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 HE WAS FOUND TO HAVE MODEARTE CHF. HE IS ADMITTED FOR DIURESIS AND CARDIAC EVAL. HE RECENTLY HAD MELANOTIC STOOL AND WAS SENT TO [facility] WE DID NOT HAVE A GI DOCTOR AVAILABLE. I SAW HIM YESTERDAY PM BUT NOTE IS DONE A DAY LATE. Allergies weed pollen Allergy (Verified 05/03/20 21:44) Itching/Hives/Rash butorphanol [From Stadol] Adverse Reaction (Verified 05/03/20 21:43) Hives/Rash Home Medications: Amlodipine Besylate 1 tab PO DAILY 05/03/20 Atorvastatin Calcium 10 mg PO BEDTIME 05/03/20 Loteprednol Etabonate [Alrex] 1 drop OP DAILY 05/03/20 Metoprolol Succinate [Toprol Xl] 1 tab PO DAILY 05/03/20 Pantoprazole [Protonix Tab*] 1 tab PO BID 05/03/20 Travoprost 1 drop EACH EYE BEDTIME 05/03/20 - Past Medical/Surgical History Has patient received pneumonia vaccine in the past: Yes Diabetic: No -: Infection in ulcers -: Gastric/duodenal/upper lower intestines ulcers -: HTN -: HLD -: Cataracts -: Corneal transplant left eye -: Cataracts removal -: Corneal transplant-left eye -: teeth removal/bridge placement -: Tonsillectomy -: Endoscopy -: For colonoscopy after a month - Family History Mother -: Hypertension uncle -: Diabetes - Social History Smoking Status: Never smoker Alcohol use: Yes CD- Drugs: No Caffeine use: Yes Place of Residence: Home Review of Systems 10-point ROS is otherwise unremarkable Cardiovascular: As per HPI Physical Examination - Vital Signs Temperature: 99.5 F Blood Pressure: 123/57 Pulse: 78 Respirations: 16 Pulse Ox (%): 96 - Physical Exam General: Mild distress HEENT: Atraumatic, PERRLA, Mucous membr. moist/pink, EOMI, Sclerae nonicteric Neck: Supple, 2+ carotid pulse no bruit, No LAD, Without JVD or thyroid abnormality Respiratory: Clear to auscultation bilaterally, Normal air movement Cardiovascular: Regular rate/rhythm, Normal S1 S2 Gastrointestinal: Normal bowel sounds, No tenderness Musculoskeletal: No tenderness Integumentary: No rashes Neurological: Normal gait, Normal speech, Normal strength at 5/5 x4 extr, Normal tone, Normal affect Lymphatics: No axilla or inguinal lymphadenopathy Assessment and Plan - Problems (Diagnosis) (1) CHF (congestive heart failure) Current Visit: Yes Status: Acute Plan: LASIX IV BID. KCL PO DAILY. ON B ALEXANDER ALREADY. ECHO ORDERED. CARDIOLOGY CONSULT. Qualifiers: Heart failure chronicity: acute (2) Anemia Current Visit: Yes Status: Acute Plan: FU LAB DAILY. HOLD LOVENOX. SCD BILAT. Qualifiers: Anemia type: iron deficiency - Advance Directives Does patient have a Living Will: Yes Does patient have a Durable POA for Healthcare: Yes
[2020-05-04 21:23] LABS: MPV 7.9 fL (7.6-11.3)
[2020-05-04 22:19] LABS: Platelet Estimate ND
--- NOTE | 2020-05-05 01:17 | PN ---
Subjective: Mr. Tovar is doing better. He is stable. He denies chest pain, nausea, vomiting. His breathing has improved compared to yesterday. Physical Examination: Vital signs: Blood pressure 123/57, pulse is 78, temperature 99.5. HEENT: No JVD. No carotid bruits. Chest: Clear. Heart: Regular. Abdomen: No guarding, no rebound, no rigidity. Currently, stable. Discharge on hold because the hemoglobin has dropped to 8.0. See him tomorrow fo r hemoglobin, however because it is due at that point. FRANCESCA/LADI Voice ID: [id number] Report ID: [id number]
[2020-05-05 04:44] LABS: Absolute Lymphocytes (CBC) 2.2 K/uL (0.7-4.9); Basophils % 1.4 % (0-1.3); Hematocrit 23.5 % (39.6-49.0); Lymphocytes % 30.5 % (15.3-44.8); MPV 8.1 fL (7.6-11.3); RBC Red Blood Cell Count 2.54 M/uL (4.33-5.43)
[2020-05-05 04:50] LABS: Potassium 3.8 mmol/L (3.5-5.1)
--- NOTE | 2020-05-05 08:17 | ECHO ---
HEIGHT: 5 ft 10.5 in WEIGHT: 169 lb 9.6 oz DATE OF STUDY: 05/04/[address]: Rony Lutz MD 2-DIMENSIONAL: YES M.MODE: YES DOPPLER: YES COLOR FLOW: YES TDS: NO PORTABLE: NO DEFINITY: NO BUBBLE STUDY: NO DIAGNOSIS: SHORTNESS OF BREATH CARDIAC HISTORY: CATHERIZATION: NO SURGERY: NO PROSTHETIC VALVE: NO PACEMAKER: NO MEASUREMENTS (cm) DIASTOLIC (NORMALS) SYSTOLIC (NORMALS) IVSd 1.1 (0.6-1.2) LA Diam 3.7 (1.9-4.0) LVEF 64% LVIDd 5.0 (3.5-5.7) LVIDs 3.3 (2.0-3.5) %FS 35% LVPWd 1.1 (0.6-1.2) Ao Diam 2.9 (2.0-3.7) 2 DIMENSIONAL ASSESSMENT: RIGHT ATRIUM: NORMAL LEFT ATRIUM: NORMAL RIGHT VENTRICLE: NORMAL LEFT VENTRICLE: NORMAL TRICUSPID VALVE: NORMAL MITRAL VALVE: NORMAL PULMONIC VALVE: NORMAL AORTIC VALVE: NORMAL PERICARDIAL EFFUSION: NONE AORTIC ROOT: NORMAL LEFT VENTRICULAR WALL MOTION: NORMAL. DOPPLER/COLOR FLOW: MILD TRICUSPID REGURGITATION. COMMENTS: MILD TRICUSPID REGURGITATION. NORMAL LEFT VENTRICULAR SIZE AND FUNCTION. NO WALL MOTION ABNORMALITY. NO EFFUSION. TECHNOLOGIST: ANTELMO BROWN
[2020-05-05 08:24] VITALS: O2SAT 93
[2020-05-05] MEDS: FUROSEMIDE 20 MG/ 2ML VIAL IV SCH (08:44)
[2020-05-05] MEDS: POTASSIUM 25 MEQ EFFERV TAB PO SCH (08:44)
[2020-05-05 08:50] VITALS: BP 135/62
[2020-05-05] MEDS ORDERED: METOPROLOL XL 100 MG TAB PO SCH (09:00)
[2020-05-05] MEDS ORDERED: LOTEPREDNOL ETABONATE OP SCH (09:00)
--- NOTE | 2020-05-05 09:14 | CON ---
Date of Consultation: 05/04/2020 Reason For Consultation: Congestive heart failure. History Of Present Illness: Mr. Cho is a 79-year-old white male, no previous cardiac history. Has a history of hypertension, dyslipidemia, lipoma, and recent discovery of small intestinal ulcers, GI b leed requiring 2 units of transfusion; 1 was here and 1 was at [facility]. His last hemoglo bin here is 8.0, creatinine is 1.3. His BNP was 1379. He came in with shortness of breath. Chest x -ray showed congestive heart failure. EKG showed bifascicular block. Troponin is negative. No ches t pain reported. No nausea or vomiting or diaphoresis. Denied PND or orthopnea. Denied pedal edema . He was just short of breath. Denied any fever or chills or cough. Allergies: HE IS ALLERGIC TO POLLEN. Review of Systems: Negative. Social History: Negative. Family History: Negative. Medications At Home: Norvasc, Lipitor, metoprolol, and Protonix. Physical Examination: General: He is a very pleasant man, in no acute distress. Vital Signs: Stable. Sinus rhythm, afebrile. HEENT: Negative. Neck: Supple with no bruit. Chest: Revealed some rales at both bases. Cardiac: Revealed a regular rhythm and rate with S4 gallops. No murmurs or rubs. Abdomen: Benign. Extremities: Revealed no clubbing, cyanosis, or edema. Diagnostic Data: As stated earlier. Impression And Plan: Possible acute diastolic congestive heart failure may be secondary to high card iac output and anemia. Hypertension may be contributing as well. He is feeling better. He is not h aving any symptoms now. Echocardiogram showed normal ejection fraction. No wall motion abnormalitie s. No effusion. We will send him home on his home medications plus a low dose Lasix on a daily basi s. He still has to have his anemia followed in the near future and I will leave that up to Dr. Luzt . He can go home whenever it is okay with Dr. Lutz. ESTELITA/JORDANL Voice ID: [id number] Report ID: [id number]
[2020-05-05 10:06] VITALS: TEMP 98.2
--- NOTE | 2020-05-05 12:48 | P.DS ---
Admission Date: 05/03/20 Discharge Date: 05/05/20 Disposition: ROUTINE DISCHARGE Discharge Condition: FAIR Reason for Admission: DYSPNEA - Problems (1) CHF (congestive heart failure) Status: Acute Qualifiers: Heart failure chronicity: acute (2) Anemia Status: Acute Qualifiers: Anemia type: iron deficiency Brief History of Present Illness: MR. CABRAL COMES IN WITH DYSPNEA AT REST. HE WAS FOUND TO HAVE MODEARTE CHF. HE IS ADMITTED FOR DIURESIS AND CARDIAC EVAL. HE RECENTLY HAD MELANOTIC STOOL AND WAS SENT TO [facility] WE DID NOT HAVE A GI DOCTOR AVAILABLE. I SAW HIM YESTERDAY PM BUT NOTE IS DONE A DAY LATE. Hospital Course: MR CABRAL IS DOING GREAT. HE CAME WITH MILD DYSPNEA AND IS ON SMALL DOSE OF LASIX NOW. HE WILL TAKE OTC IRON TABLET FOR ANEMIA FROM RECENT GI BLEED. HE WILL COME SEE ME IN A WEEK OR SO. I WILL PUT HIM ON ARB IF BP ALLOWS ME TO. Vital Signs/Physical Exam: Temp Pulse Resp BP Pulse Ox 98.2 F 79 20 135/62 95 05/05/20 08:00 05/05/20 08:44 05/05/20 08:00 05/05/20 08:44 05/05/20 08:00 Laboratory Data at Discharge: WBC 7.1 K/uL (4.3-10.9) 05/05/20 03:48 Hgb 8.0 g/dL (13.6-17.9) L 05/05/20 03:48 Hct 23.5 % (39.6-49.0) L 05/05/20 03:48 Plt Count 238 K/uL (152-406) 05/05/20 03:48 PT 13.9 SECONDS (9.5-12.5) H 05/03/20 13:49 INR 1.18 05/03/20 13:49 Sodium 145 mmol/L (136-145) 05/05/20 03:48 Potassium 3.8 mmol/L (3.5-5.1) 05/05/20 03:48 BUN 15 mg/dL (7-18) 05/05/20 03:48 Creatinine 1.09 mg/dL (0.55-1.3) 05/05/20 03:48 Glucose 95 mg/dL (74-106) 05/05/20 03:48 Magnesium 2.7 mg/dL (1.8-2.4) H 05/03/20 13:49 Troponin I < 0.02 ng/mL (0.0-0.045) 05/03/20 22:07 Home Medications: Atorvastatin Calcium 10 mg PO BEDTIME 05/03/20 Loteprednol Etabonate [Alrex] 1 drop OP DAILY 05/03/20 Metoprolol Succinate [Toprol Xl] 1 tab PO DAILY 05/03/20 Pantoprazole [Protonix Tab*] 1 tab PO BID 05/03/20 Travoprost 1 drop EACH EYE BEDTIME 05/03/20 Furosemide 20 mg PO DAILY #90 tablet 05/05/20 Potassium Chloride [Klor-Con M20] 20 meq PO DAILY #90 tab.er.prt 05/05/20 New Medications: Furosemide 20 mg PO DAILY #90 tablet Potassium Chloride [Klor-Con M20] 20 meq PO DAILY #90 tab.er.prt Patient Discharge Instructions: BUY IRON OVER THE COUNTER- [employer] OR ANY OTHER COMPANY 65 MG DAILY. Diet: AHA Followup: Rony Lutz MD [Primary Care Provider] - 1-2 Weeks (call to schedule an appointment)
== END 2020-05-05 11:45 | disposition home or self-care (01) ==
LOC: ER 13:02 → 2ND 21:16
PROVIDERS: ADMIT Internal Medicine; ATTEND Internal Medicine
DX: I11.0 Hypertensive heart disease with heart failure (principal); I50.9 Heart failure, unspecified; D50.9 Iron deficiency anemia, unspecified; R06.02 Shortness of breath; Z20.828 Contact with and (suspected) exposure to other viral communicable diseases; I07.1 Rheumatic tricuspid insufficiency; I45.2 Bifascicular block; E78.5 Hyperlipidemia, unspecified; Z79.899 Other long term (current) drug therapy
CPT/HCPCS: 93005; 93306; 85025 ×3; 80048 ×3; 36415 ×2; 83735; 85049; 85610; 84484 ×3; 83880 ×2; 71045; 96374; 99285; U0002; J1940 ×5; G0378 ×4

== ENCOUNTER 2024-06-13 19:07 | Emergency (ER) | payer OTHER ==
[2024-06-13 20:14] LABS: Specific Gravity 1.019 (1.005-1.030); Sqamous Epithelial None Seen /HPF (None Seen); Urine Bacteria <20 /HPF (<20); Urine Bilirubin NEGATIVE (Negative); Urine Blood Negative (Negative); Urine Clarity Clear (Clear); Urine Color Light-Yellow (Yellow); Urine Culture Reflex Order NOT NEEDED; Urine Glucose NEGATIVE (Negative); Urine Ketones NEGATIVE (Negative); Urine Microscopic Reflex YN ORDER UMIC; Urine Nitrite NEGATIVE (Negative); Urine Protein TRACE (Negative); Urine RBC <5 /HPF (None Seen); Urine Urobilinogen 1+ (Normal); Urine WBC <5 /HPF (<5)
[2024-06-13 20:16] LABS: Absolute Basophils 0.1 K/uL (0-0.5); Absolute Eosinophils 0.2 K/uL (0-0.5); Absolute Monocytes 1.4 K/uL (0.1-1.3); Absolute Neutrophil 10.6 K/uL (1.8-8.0); Basophils % 0.4 % (0-1.3); Eosinophils % 1.6 % (0-4.4); Hematocrit 18.1 % (39.6-49.0); Lymphocytes % 14.2 % (15.3-44.8); MCH 32.9 pg (27.0-35.0); MCHC 32.7 g/dL (32.0-36.0); MCV 100.5 fL (80-100); MPV 8.2 fL (7.6-11.3); Monocytes % 9.5 % (3.3-12.3); Neutrophils % 74.3 % (41.7-73.7); Nucleated Red Blood Cells % 0.1 % (0-0); Platelets 189 thou/uL (152-406); Red Cell Distribution Width 14.5 % (12.1-15.2)
[2024-06-13] MEDS ORDERED: PANTOPRAZOLE 40 MG INJ ONE (20:17)
[2024-06-13] MEDS ORDERED: NA CHLORIDE 0.9% 500 ML ONE (20:18)
[2024-06-13] MEDS ORDERED: NA CHLORIDE 0.9% 2,000 ML ONE (20:19)
[2024-06-13 20:21] LABS: Hemoglobin 5.9 g/dL (13.6-17.9)
[2024-06-13 20:23] LABS: PT Prothrombin Time 17.4 SECONDS (9.4-12.5); Protime INR 1.57
--- NOTE | 2024-06-13 20:58 | RAD REPORT ---
EXAM DESCRIPTION: CT - Head C Spine Cap Wo Con - 06/13/2024 8:32 pm CLINICAL HISTORY: Head and neck injury with chest and abdominal pain status post fall TECHNIQUE: Computed axial tomography of head, neck, chest, abdomen and pelvis obtained. IV and oral contrast not requested. Coronal and sagittal reconstruction performed. All CT scans are performed using dose optimization technique as appropriate and may include automated exposure control or mA/KV adjustment according to patient size. COMPARISON: 2019 CT abdomen FINDINGS: An intracranial bleed is not seen. The ventricles are normal in caliber. An extra-axial fluid collection is not noted. Fluid within the sinuses/mastoids is not seen. A cervical fracture is not seen. No dislocation is noted. The evaluation of mediastinum, nicole, vessels, solid organs and bowel are limited secondary to the lac k of contrast administration. A mediastinal hematoma is not noted. Small to moderate right and small left pleural effusions. Mild g round-glass opacities within the lungs. No pulmonary contusion Old rib fractures The liver,spleen, pancreas, adrenals,kidneys and bladder do not demonstrate an acute traumatic injury Chronic compression deformity L1 vertebral body Small hiatal hernia Mild to moderate enlargement prostate gland. Diverticula stem from the colon. Mild stranding adjacent to the sigmoid colon IMPRESSION: No acute intracranial abnormality is seen. A cervical fracture is not visualized. If the patient continues to have symptoms to suggest intracran ial/spinal cord pathology MRI be recommended Small to moderate right and small left pleural effusions Mild ground-glass opacities within the lungs may indicate mild pulmonary edema No acute traumatic abnormality involving the chest, abdomen or pelvis Mild sigmoid diverticulitis
--- NOTE | 2024-06-13 21:13 | RAD REPORT ---
EXAM DESCRIPTION: Giuliana Single View06/13/2024 8:57 pm CLINICAL HISTORY: cough COMPARISON: 2022 FINDINGS: Small bilateral pleural effusion Heart is mildly enlarged Mild bilateral pulmonary opacities Old rib fractures IMPRESSION: These findings may indicate mild CHF
[2024-06-13 21:20] LABS: Albumin 2.4 g/dL (3.4-5.0); Albumin/Globulin Ratio 0.8 (1.1-1.8); Anion Gap 9.7 mEq/L (5.0-15.0); Bilirubin Direct 0.2 mg/dL (0-0.2); Bilirubin Indirect, Calculated 0.3 mg/dL (0.2-0.8); Bilirubin Total 0.5 mg/dL (0.2-1.0); Globulin 2.9 g/dL (2.3-3.5); Magnesium 1.8 mg/dL (1.6-2.4); Potassium 3.7 mEq/L (3.5-5.1); Protein, Total 5.3 g/dL (6.4-8.2); Troponin High Sensitivity 14.2 pg/mL (<58.9)
--- NOTE | 2024-06-13 23:55 | EDPHYS ---
Physician Documentation [facility] Name: Guy Cho Age: 83 yrs Sex: Male : 1940 Arrival Date: 06/13/2024 Time: 19:07 Bed 16 Private MD: ED Physician William Guerrero HPI: 06/13 20:55 This 83 yrs old Male presents to ER via EMS with complaints of Fall Injury, General bo1 Weakness. 21:10 Details of fall: The patient fell and struck Onto a box. Onset: The symptoms/episode bo1 began/occurred suddenly. Associated injuries: The patient sustained LBP. Severity of symptoms: in the emergency department the symptoms are unchanged, are actually worse, Minimal LBP. The patient has experienced a previous episode, Hx of GI bleed due to ASA. Pt was weak and dizzy. Had "red" blood diarrhea yesterday (Saturday). Historical: - Allergies: 06/14 00:39 Stadol; ha1 - PMHx: 00:39 Glaucoma; High Cholesterol; Hypertension; Ulcers; ha1 - Immunization history:: Adult Immunizations up to date. - Infectious Disease History:: Denies. - Social history:: Smoking status: Patient/guardian denies using tobacco, the patient reports quitting approximately 7 years ago. ROS: 06/13 21:12 Constitutional: Negative for fever, chills, and weight loss, bo1 Cardiovascular: Negative for chest pain, Respiratory: Negative for cough, shortness of breath, Abdomen/GI: Negative for abdominal pain, diarrhea, "red diarrhea stools", Skin: Positive for Some "bruising", All other systems are negative, Exam: 23:56 Constitutional: This is a well developed, well nourished patient who is awake, alert, bo1 and mild distress. 23:56 Head/face: No tenderness or injury (apparent). 23:56 Eyes: Conjunctiva: pale, bilaterally, Sclera: icterus, is not appreciated, 23:56 Neck: External neck: is normal, 23:56 Cardiovascular: Heart sounds: normal, 23:56 Respiratory: the patient does not display signs of respiratory distress, Respirations: normal, Breath sounds: are clear throughout, 23:56 Abdomen/GI: Inspection: abdomen appears normal, Palpation: abdomen is soft and non-tender, voluntary guarding, 23:56 Musculoskeletal/extremity: Some "bruising" present. 23:56 Skin: injury, is not appreciated, 23:56 Neuro: Orientation: appropriate for stated age, Mentation: appropriate for stated age, Memory: appropriate for stated age, seizure activity, is not displayed by the patient, Vital Signs: 19:15 BP 111 / 52; Pulse 79; Resp 18; Temp 98; Pulse Ox 100% on R/A; Weight 78.47 kg; Height rg5 5 ft. 10 in. ; Pain 6/10; 21:00 BP 105 / 53; Pulse 70; Resp 19; Temp 98; Pulse Ox 100% on R/A; rg5 22:30 BP 105 / 50; Pulse 72; Resp 18; Temp 98; Pulse Ox 100% on R/A; Pain 0/10; rg5 23:52 BP 108 / 42; Pulse 65; Resp 18; Temp 98; Pulse Ox 100% on R/A; Pain 0/10; [email or web address]] 06/14 00:30 BP 108 / 51; Pulse 69; Resp 17; Temp 98; Pulse Ox 100% ; Pain 0/10; rg5 01:30 BP 108 / 51; Pulse 69; Resp 17; Temp 98; Pulse Ox 100% on R/A; Pain 0/10; rg5 02:17 BP 120 / 60; Pulse 65; Resp 18; Temp 98; Pulse Ox 100% on R/A; Pain 0/10; rg5 08 19:15 Body Mass Index 24.82 (78.47 kg, 177.8 cm) [facility] [email or web address]] 06/13 19:15 Pain Scale: Adult [facility] [email or web address]] 22:30 Pain Scale: Adult 5 23:52 Pain Scale: Adult 5 06/14 00:30 Pain Scale: Adult rg5 01:30 Pain Scale: Adult 5 02:17 Pain Scale: Adult [facility] [email or web address]] Sunita Coma Score: 06/13 21:00 Eye Response: spontaneous(4). Motor Response: obeys commands(6). Verbal Response: rg5 oriented(5). Total: 15. MDM: 19:32 Patient medically screened. henri 23:54 Differential diagnosis: Weakness GI Bleed Anemia. Data reviewed: vital signs, lab test bo1 result(s), CBC, electrolytes, Type and RH. Consideration of Admission/Observation No GI Med services at [facility]. ED course: Pt is getting his 1st unit of PRBCs. 06/14 00:40 Management of patient was discussed with the following: Hospitalist: Dr Kwaku MEJIA \\T\\ St [facility]ishna1 Anup'raj DT. 06/13 19:33 Order name: Type And Screen [facility] 06/13 19:33 Order name: Basic Metabolic Panel; Complete Time: 23:59 [facility] 06/13 19:33 Order name: CBC with Diff; Complete Time: 20:53 [facility] 06/13 19:33 Order name: LFT's; Complete Time: 23:59 [facility] 06/13 19:33 Order name: Magnesium; Complete Time: 23:59 [facility] 06/13 19:33 Order name: NT PRO-BNP; Complete Time: 23:59 [facility] 06/13 19:33 Order name: PT-INR; Complete Time: 20:53 [facility] 06/13 19:33 Order name: Troponin HS; Complete Time: 23:59 [facility] 06/13 19:33 Order name: Lipase; Complete Time: 23:59 [facility] 06/13 19:33 Order name: Urinalysis w/ reflexes; Complete Time: 20:53 [facility] 06/13 21:14 Order name: Packed RBC Leukored EDMS 06/13 19:33 Order name: XRAY Chest (1 view); Complete Time: 21:14 [facility] 06/13 19:33 Order name: CT Traumagram (Head C Spine CAP wo con); Complete Time: 21:14 [facility] 06/13 19:33 Order name: Cardiac monitoring; Complete Time: 19:41 [facility] 06/13 19:33 Order name: EKG - Nurse/Tech; Complete Time: 19:41 [facility] 06/13 19:33 Order name: IV Saline Lock; Complete Time: 20:40 [facility] 06/13 19:33 Order name: Labs collected and sent; Complete Time: 20:40 [facility] 06/13 19:33 Order name: O2 Per Protocol; Complete Time: 20:40 [facility] 06/13 19:33 Order name: O2 Sat Monitoring; Complete Time: 20:40 [facility] Administered Medications: 05:11 Discontinued: ns 0.9% 1000 ml IV at 125 ml/hr continuous rg5 06/13 20:00 Drug: NS 0.9% IV 500 ml IV at bolus once Route: IV; Rate: bolus; Site: right rg5 antecubital; 22:00 Follow up: Response: No adverse reaction; IV Status: Completed infusion; IV Intake: rg5 500ml 20:38 Drug: Pantoprazole IVP 80 mg IVP once Route: IVP; Site: right antecubital; rg5 21:00 Follow up: Response: No adverse reaction rg5 20:47 Drug: NS 0.9% IV 1000 ml IV at 125 ml/hr continuous Route: IV; Rate: 125 ml/hr; Site: rg5 right antecubital; 22:00 Follow up: IV Status: Completed infusion; IV Intake: 250ml rg5 22:21 Not Given (duplicate order): ns 0.9% 1000 ml IV at 125 ml/hr continuous rg5 Disposition Summary: 06/13/24 23:54 Transfer Ordered Notes: Transfer Location: [facility] bo1 Reason: Higher level of care bo1 Condition: Fair bo1 Problem: new bo1 Symptoms: are unchanged bo1 Accepting Physician: Hospitalist - Dr Kwaku MEJIA(06/14/24 02:34) rg5 Diagnosis - Anemia, unspecified bo1 - GI Bleed/ Gastrointestinal hemorrhage, unspecified bo1 - Fall on same level, unspecified bo1 Forms: - Medication Reconciliation Form bo1 - SBAR form bo1 Signatures: Dispatcher [employer] EDMS William Guerrero MD MD cha Ayala, Heidy RN RN ha1 Shan Narvaez MD MD bo1 Missael Do, RN RN rg5 Corrections: (The following items were deleted from the chart) 19:34 19:34 BASIC METABOLIC PANEL+C.LAB.BRZ ordered. EDMS EDMS 19:34 19:34 CBC+H.LAB.BRZ ordered. EDMS EDMS 19:34 19:34 HEPATIC FUNCTION+C.LAB.BRZ ordered. EDMS EDMS 19:34 19:34 MAGNESIUM+C.LAB.BRZ ordered. EDMS EDMS 19:34 19:34 PROBNP+C.LAB.BRZ ordered. EDMS EDMS 19:34 19:34 PROTIME (+INR)+COAG.LAB.BRZ ordered. EDMS EDMS 19:34 19:34 Troponin High Sensitivity+C.LAB.BRZ ordered. EDMS EDMS 19:34 19:34 LIPASE+C.LAB.BRZ ordered. EDMS EDMS 19:34 19:34 TYPE AND SCREEN+BB.LAB.BRZ ordered. EDMS EDMS : 19:34 Urinalysis+U.LAB.BRZ ordered. EDMS EDMS 34 19:34 Chest Single View+RAD.RAD.BRZ ordered. EDMS EDMS : 19:34 Head C Spine Cap Wo Con+CT.RAD.BRZ ordered. EDMS EDMS 06/14 00:40 08 23:54 Hospitalist bo1 bo1 06/14 00:40 00:40 Hospitalist - Dr Kwaku MEJIA bo1 bo1 02:34 00:40 Hospitalist - Dr Kwaku MEJIA bo1 rg5
--- NOTE | 2024-06-13 23:55 | ER ---
Nurse's Notes [facility] Name: Guy hCo Age: 83 yrs Sex: Male : 1940 Arrival Date: 06/13/2024 Time: 19:07 Bed 16 Private MD: Diagnosis: Anemia, unspecified;GI Bleed/ Gastrointestinal hemorrhage, unspecified;Fall on same level, unspecified Presentation: 06/13 19:15 Chief complaint: EMS states: complaint of generalized weakness and diarrhea with blood rg5 for 1 wk. He had a fall this afternoon around 2am and landed on hiis back. 19:15 Coronavirus screen: Vaccine status: Client denies travel out of the [place] in the last 14 rg5 days. Ebola Screen: Patient negative for fever greater than or equal to 101.5 degrees Fahrenheit, and additional compatible Ebola Virus Disease symptoms. Initial Sepsis Screen: Does the patient meet any 2 criteria? No. Patient's initial sepsis screen is negative. Does the patient have a suspected source of infection? No. Patient's initial sepsis screen is negative. Risk Assessment: Do you want to hurt yourself or someone else? Patient reports no desire to harm self or others. Onset of symptoms was June 13, 2024. 19:15 Method Of Arrival: [facility]: [facility] rg5 19:15 Acuity: FAISAL 3 rg5 Triage Assessment: 19:15 General: Appears in no apparent distress. uncomfortable, Behavior is calm, cooperative, rg5 appropriate for age. Pain: Complains of pain in low back Pain does not radiate. Pain currently is 6 out of 10 on a pain scale. Quality of pain is described as aching, Pain began 4 hours ago. Is continuous. Historical: - Allergies: 06/14 00:39 Stadol; ha1 - PMHx: 00:39 Glaucoma; High Cholesterol; Hypertension; Ulcers; ha1 - Immunization history:: Adult Immunizations up to date. - Infectious Disease History:: Denies. - Social history:: Smoking status: Patient/guardian denies using tobacco, the patient reports quitting approximately 7 years ago. Screenin/10 21:00 [facility] ED Fall Risk Assessment (Adult) History of falling in the last 3 months, rg5 including since admission No falls in past 3 months (0 pts) Confusion or Disorientation No (0 pts) Intoxicated or Sedated No (0 pts) Impaired Gait Yes (1 pt) Mobility Assist Device Used Yes (1 pt) Altered Elimination No (0 pt) Score/Fall Risk Level. Abuse screen: Denies threats or abuse. Nutritional screening: No deficits noted. Tuberculosis screening: No symptoms or risk factors identified. Assessment: 19:15 General: Appears uncomfortable, Behavior is cooperative, appropriate for age. rg5 19:15 Pain: Complains of pain in left low back and right low back Pain currently is 6 out of rg5 10 on a pain scale. Quality of pain is described as aching. Neuro: Level of Consciousness is awake, alert, obeys commands, Oriented to place, time, situation, Appropriate for age. Cardiovascular: Denies chest pain, Capillary refill is > 3 seconds Patient's skin is warm and dry. Rhythm is atrial fibrillation. Respiratory: Airway is patent Trachea midline Respiratory effort is even, unlabored, Respiratory pattern is regular, symmetrical. GI: Abdomen is flat, non-distended, Abd is soft and non tender X 4 quads. Reports diarrhea, bloody stool. : No signs and/or symptoms were reported regarding the genitourinary system. EENT: No deficits noted. Derm: Skin is intact, Skin is dry, Skin is pale, Skin temperature is warm. Musculoskeletal: Range of motion: intact in all extremities. 20:30 Reassessment: No changes from previously documented assessment. Patient and/or family rg5 updated on plan of care and expected duration. Pain level reassessed. Patient is alert, oriented x 3, equal unlabored respirations, skin warm/dry/pink. 21:30 Reassessment: Patient and/or family updated on plan of care and expected duration. Pain rg5 level reassessed. Patient is alert, oriented x 3, equal unlabored respirations, skin warm/dry/pink. 22:40 Reassessment: Patient and/or family updated on plan of care and expected duration. Pain rg5 level reassessed. Patient is alert, oriented x 3, equal unlabored respirations, skin warm/dry/pink. 23:30 Reassessment: No changes from previously documented assessment. Patient and/or family rg5 updated on plan of care and expected duration. Pain level reassessed. 06/14 00:34 Reassessment: No changes from previously documented assessment. rg5 01:13 Reassessment: Patient and/or family updated on plan of care and expected duration. Pain rg5 level reassessed. Patient is alert, oriented x 3, equal unlabored respirations, skin warm/dry/pink. 02:12 Reassessment: Patient and/or family updated on plan of care and expected duration. Pain rg5 level reassessed. Patient states feeling better. Vital Signs: 06/13 19:15 BP 111 / 52; Pulse 79; Resp 18; Temp 98; Pulse Ox 100% on R/A; Weight 78.47 kg; Height rg5 5 ft. 10 in. ; Pain 6/10; 21:00 BP 105 / 53; Pulse 70; Resp 19; Temp 98; Pulse Ox 100% on R/A; rg5 22:30 BP 105 / 50; Pulse 72; Resp 18; Temp 98; Pulse Ox 100% on R/A; Pain 0/10; rg5 23:52 BP 108 / 42; Pulse 65; Resp 18; Temp 98; Pulse Ox 100% on R/A; Pain 0/10; rg5 06/14 00:30 BP 108 / 51; Pulse 69; Resp 17; Temp 98; Pulse Ox 100% ; Pain 0/10; rg5 01:30 BP 108 / 51; Pulse 69; Resp 17; Temp 98; Pulse Ox 100% on R/A; Pain 0/10; rg5 02:17 BP 120 / 60; Pulse 65; Resp 18; Temp 98; Pulse Ox 100% on R/A; Pain 0/10; rg5 06/13 19:15 Body Mass Index 24.82 (78.47 kg, 177.8 cm) rg5 06/13 19:15 Pain Scale: Adult rg5 22:30 Pain Scale: Adult rg5 23:52 Pain Scale: Adult rg5 06/14 00:30 Pain Scale: Adult rg5 01:30 Pain Scale: Adult rg5 02:17 Pain Scale: Adult rg5 Sunita Coma Score: 06/13 21:00 Eye Response: spontaneous(4). Motor Response: obeys commands(6). Verbal Response: rg5 oriented(5). Total: 15. ED Course: 19:13 Patient arrived in ED. cp4 19:15 Arm band placed on right wrist. EKG completed in triage. Results shown to MD. rg5 19:20 Missael Do, BEATRICE is Primary Nurse. rg5 19:29 Triage completed. rg5 19:31 William Guerrero MD is Attending Physician. [facility] 20:00 Assisted with urinal. rg5 20:00 Door closed. Warm blanket given. rg5 20:[address] via stretcher. rg5 20:33 CT Traumagram (Head C Spine CAP wo con) In Process Unspecified. EDMS 20:45 Consent for blood and/or blood product transfusion signed by patient. rg5 20:59 XRAY Chest (1 view) In Process Unspecified. EDMS 21:00 Patient has correct armband on for positive identification. Fall risk band placed. rg5 Placed in gown. Bed in low position. Call light in reach. Side rails up X2. Adult w/ patient. 21:00 No provider procedures requiring assistance completed. Inserted saline lock: 20 gauge rg5 in right antecubital area, using aseptic technique. Blood collected. Flushed with 10 mL NS. 23:55 Inserted saline lock: 20 gauge in left forearm, using aseptic technique. Flushed with rg5 10 mL NS. 06/14 02:03 Initiated transfer with Bibiana \T\0002, Pt accepted at [facility] Rm [id number] Ames \T\[id number] per af 3 Bibiana Mendoza \T\[id number]. 02:06 Spoke with Delisa, acceptance for truck from [facility] \T\[id number], eta less than 30 min. af3 02:13 transfer transportation to receiving facility. rg5 02:26 Provided Education on: need for transfer. rg5 02:26 Patient transferred, IV remains in place. intact, No redness/swelling at site. Pressure rg5 dressing applied. Administered Medications: 05:11 Discontinued: ns 0.9% 1000 ml IV at 125 ml/hr continuous rg5 06/13 20:00 Drug: NS 0.9% IV 500 ml IV at bolus once Route: IV; Rate: bolus; Site: right rg5 antecubital; 22:00 Follow up: Response: No adverse reaction; IV Status: Completed infusion; IV Intake: rg5 500ml 20:38 Drug: Pantoprazole IVP 80 mg IVP once Route: IVP; Site: right antecubital; rg5 21:00 Follow up: Response: No adverse reaction rg5 20:47 Drug: NS 0.9% IV 1000 ml IV at 125 ml/hr continuous Route: IV; Rate: 125 ml/hr; Site: rg5 right antecubital; 22:00 Follow up: IV Status: Completed infusion; IV Intake: 250ml rg5 22:21 Not Given (duplicate order): ns 0.9% 1000 ml IV at 125 ml/hr continuous rg5 Medication: 21:00 VIS not applicable for this client. rg5 06/14 01:45 Blood products: PRBCs X 2 units given. rg5 Intake: 06/13 22:00 IV: 500ml; Total: 500ml. rg5 22:00 IV: 250ml; Total: 750ml. rg5 Outcome: 23:54 ER care complete, transfer ordered by . bo1 06/14 02:25 Transferred by ground EMS to [facility], Transfer form completed. rg5 Condition: stable Instructed on the need for transfer, 02:34 Patient left the ED. rg5 Signatures: Dispatcher [employer] EDMS William Guerrero MD MD cha Ayala, Heidy, RN RN Reina Lyman 4 Shan Narvaez MD MD bo1 Gallardo, Rommel RN RN [id number] Eloisa Ernst af3 Corrections: (The following items were deleted from the chart) 06/13 23:56 21:00 Inserted saline lock: 20 gauge in right antecubital area, using aseptic rg5 technique. rg5 23:56 23:55 Inserted saline lock: 20 gauge in left forearm, using aseptic technique. rg5 rg5 06/14 02:06 02:03 Initiated transfer with Bibiana \T\0002, Pt accepted at [facility] Rm [id number] af3 af3
[2024-06-14 02:45] VITALS: TEMP 98; O2SAT 100
[2024-06-14 03:07] VITALS: BP 120/60
--- NOTE | 2024-06-15 13:49 | EKG ---
Test Date: 2024-06-13 Test Time: 19:28:08 [employer] Analyst: RODRIGUEZ MEASUREMENT RESULTS: Intervals: Rate: 63 [place]: QRSD: 144 QT: 486 QTc: 497 [place]: P: [place]: QRS: -66 T: 54 INTERPRETIVE STATEMENTS: Atrial fibrillation with premature ventricular or aberrantly conducted complexes Right bundle branch block Left anterior fascicular block Bifascicular block Septal infarct, age undetermined Abnormal ECG Compared to ECG 05/03/2020 14:00:18 Ventricular premature complex(es) now present Myocardial infarct finding now present Sinus rhythm no longer present Atrial premature complex(es) no longer present Bifascicular block still present Electronically Signed On 06-15-24 13:45:20 CDT by Julian Carrillo
== END 2024-06-14 02:34 | disposition short-term general hospital (02) ==
LOC: ER 19:07
DX: D64.9 Anemia, unspecified (principal); W18.30XA Fall on same level, unspecified, initial encounter
CPT/HCPCS: 96361; 93005; 85025; 81001; 80048; 36415; 86900; 83735; 86850; 85610; 86901; 80076; 86920 ×2; 84484; 83690; 83880; 70450; 71250; 72125; 71045; 36430; 96374; 99285; J2470; P9016 ×2; J7040; J7030

== ENCOUNTER → 2024-08-12 | Day surgery (SDC) | payer OTHER ==
--- NOTE | 2024-08-12 11:25 | RAD REPORT ---
PROCEDURE: ULTRASOUND GUIDED BIOPSY CLINICAL INDICATION: Right groin mass measuring 4 cm Male, 84 years old. R59.9, R19.09 PROCEDURE DETAILS: Consent: Informed consent for the procedure including risks, benefits and alternatives was obtained a nd time-out was performed prior to the procedure. Preparation: The site was prepared and draped using all elements of maximal sterile barrier technique including sterile gloves, sterile gown, cap, mask, large sterile sheet, sterile ultrasound probe cover as needed, hand hygiene and cutaneous antisepsis with 2% chlorhexidine. . Imaging prior to biopsy: The patient was positioned supine and initial imaging was performed. Biopsy: Local anesthesia was administered. Under fluoroscopic guidance, the 18-gauge biopsy needle wa s advanced to the target 4 cm right groin mass and biopsy was performed. The biopsy needle was removed and a sterile dressing was applied. Number of specimens: 3 Estimated blood loss: Less than 10 mL. COMPLICATIONS: No immediate complications. IMPRESSION: Percutaneous ultrasound-guided Core needle biopsy of right groin mass
== END ==
LOC: FNA 09:40
PROVIDERS: ATTEND Surgery
DX: R59.9 Enlarged lymph nodes, unspecified (principal); R19.09 Other intra-abdominal and pelvic swelling, mass and lump
CPT/HCPCS: 38505; 76942; 88305